=== PATIENT | male | born 1945 | race Caucasian/White ===

== ENCOUNTER 2019-08-07 13:04 | Inpatient (IN) | payer MEDICARE, MEDICAID ==
[~2019-08-07] VITALS: Ht 170.2 cm; Wt 64.4 kg
[2019-08-07] MEDS ORDERED: Solu-MEDROL 125mg Inj IVP ONE (13:15)
[2019-08-07] MEDS ORDERED: Ipratropium 0.02% Inh Soln 2.5ml UD HHN ONE (13:15)
[2019-08-07] MEDS ORDERED: ASPIR 8181 MG ORAL (13:27)
[2019-08-07] MEDS ORDERED: ATORVASTATIN CA40 MG ORAL (13:32)
[2019-08-07] MEDS ORDERED: LISINOPRIL20 MG ORAL (13:32)
[2019-08-07] MEDS ORDERED: SINGULAIR4 M3 ORAL (13:32)
[2019-08-07] MEDS ORDERED: VITAMIN D31000 UNI4 PO (13:32)
[2019-08-07] MEDS ORDERED: METOPROLOL SUCC25 MG ORAL (13:32)
[2019-08-07] MEDS ORDERED: DUONEB 0.5-3(2.53 ML HHN (13:32)
[2019-08-07] MEDS ORDERED: SYNTHROID25 MCG ORAL (13:32)
[2019-08-07] MEDS ORDERED: DIGOXIN125 MCG ORAL (13:32)
[2019-08-07] MEDS ORDERED: FUROSEMIDE40 MG ORAL (13:32)
[2019-08-07] MEDS ORDERED: SINEMET 25-1001 EAC1 ORAL (13:32)
[2019-08-07] MEDS: Albuterol ud Inhalation HHN SCH ×2 (13:45→13:46)
[2019-08-07 13:53] LABS: BASOPHILS % (AUTO) 1.9 % (0.0-2.0); EOSINOPHILS % (AUTO) 3.1 % (0.0-3.0); HEMATOCRIT 38.1 % (42.0-52.0); HEMOGLOBIN 12.2 G/DL (14.2-18.0); MEAN CORPUSCULAR VOLUME 89 FL (80-99); MONOCYTES % (AUTO) 9.2 % (1.0-10.0); NEUTROPHILS % (AUTO) 73.9 % (45.0-75.0); PLATELET COUNT 190 K/UL (150-450); RED BLOOD COUNT 4.29 M/UL (4.70-6.10); RED CELL DISTRIBUTION WIDTH 15.3 % (11.6-14.8); WHITE BLOOD COUNT 8.8 K/UL (4.8-10.8)
[2019-08-07 13:55] VITALS: BP 92/67
[2019-08-07 14:05] LABS: ANION GAP 5 mmol/L (5-15); BLOOD UREA NITROGEN 15 mg/dL (7-18); CALCIUM 8.4 MG/DL (8.5-10.1); CARBON DIOXIDE 33 MMOL/L (21-32); CHLORIDE 99 MMOL/L (98-107); CREATININE 0.9 MG/DL (0.55-1.30); INR 1.1 (0.9-1.1); POTASSIUM 3.4 MMOL/L (3.5-5.1); SODIUM 137 MMOL/L (136-145)
[2019-08-07 14:16] LABS: ALANINE AMINOTRANSFERASE 28 U/L (12-78); ALBUMIN/GLOBULIN RATIO 0.8 (1.0-2.7); ALKALINE PHOSPHATASE 57 U/L (46-116); ASPARTATE AMINO TRANSFERASE 22 U/L (15-37); BILIRUBIN,TOTAL 0.6 MG/DL (0.2-1.0); CREATINE KINASE 62 U/L (26-308)
--- NOTE | 2019-08-07 14:44 | Emergency Room Report ---
History of Present Illness General Chief Complaint: Dyspnea/Respdistress Source: EMS Present Illness HPI Patient presents with wheezing and nonproductive cough. The patient is a poor historian. According to his private physician someone noted that he was hypotensive. Status post fracture of right upper arm. History of Parkinson's. History of schizophrenia. Allergies: Coded Allergies: No Known Allergies (Unverified , 08/07/19) Patient History Limited by: medical condition Past Medical History: see triage record, old chart reviewed Social History: Denies: smoking - Former Social History Narrative [facility] facility -full code Reviewed Nursing Documentation: PMH: Agreed; PSxH: Agreed Nursing Documentation-PMH Hx Cardiac Problems: Yes - AFIB, CAD, HYPERLIPIDEMIA Hx Hypertension: Yes Hx COPD: Yes History Of Psychiatric Problem: Yes - ANXIETY, SCHIZO Review of Systems All Other Systems: limited Physical Exam Vital Signs Date Time Temp Pulse Resp B/P (MAP) Pulse Ox O2 Delivery O2 Flow Rate FiO2 08/07/19 13:08 97.5 77 20 97/57 (70) 96 Nasal Cannula 2.0 08/07/19 13:36 32 Sp02 EP Interpretation: reviewed, abnormal - Interpreted as low by me General Appearance: no apparent distress, alert, other - Confused and not responding to commands, Chronically Ill Eyes: bilateral eye normal inspection, bilateral eye PERRL, bilateral eye EOMI ENT: moist mucus membranes Neck: full range of motion, supple Respiratory: wheezing, expiration, inspiration Cardiovascular #1: regular rate, rhythm, edema - Trace lower extremities Cardiovascular #2: 2+ radial (L) Gastrointestinal: non tender, soft, decreased bowel sounds Genitourinary: no CVA tenderness Musculoskeletal: normal range of motion, no calf tenderness, tender - Passive range of motion right upper arm Neurologic: DTRs symmetric, sensory intact, motor weakness - Lower extremities but moves all 4, oriented Psychiatric: mood/affect normal, other - Unintentional verbiage and grumbling , occasionally combative Medical Decision Making Diagnostic Impression: Primary Impression: COPD exacerbation Additional Impressions: CHF (congestive heart failure) Qualified Codes: I50.9 - Heart failure, unspecified Schizophrenia Qualified Codes: F20.9 - Schizophrenia, unspecified History of Parkinson's disease ER Course Patient presents with dyspnea and wheezing. Differential includes acute myocardial infarction, exacerbation congestive heart failure, pneumonia, pulmonary embolus, congestive heart failure amongst others. Patient evaluated with EKG, chest x-ray and labs. Patient treated with Solu-Medrol and breathing treatments. EKG without injury. Chest x-ray both COPD and CHF. No lobar infiltrates. White count normal with eosinophilia.. Elevated BNP. Unable to obtain urinalysis. Improved with breathing treatments. CO2 19. Patient with elevated BNP. Lasix ordered. Discussed with Dr. Coy. Patient is less respiratory distress. Still with low oxygen on supplemental oxygen. She is CO2 not increasing. Admit telemetry. Laboratory Tests Test 08/07/19 13:20 White Blood Count 8.8 K/UL (4.8-10.8) Red Blood Count 4.29 M/UL (4.70-6.10) L Hemoglobin 12.2 G/DL (14.2-18.0) L Hematocrit 38.1 % (42.0-52.0) L Mean Corpuscular Volume 89 FL (80-99) Mean Corpuscular Hemoglobin 28.4 PG (27.0-31.0) Mean Corpuscular Hemoglobin Concent 32.0 G/DL (32.0-36.0) Red Cell Distribution Width 15.3 % (11.6-14.8) H Platelet Count 190 K/UL (150-450) Mean Platelet Volume 6.0 FL (6.5-10.1) L Neutrophils (%) (Auto) 73.9 % (45.0-75.0) Lymphocytes (%) (Auto) 12.0 % (20.0-45.0) L Monocytes (%) (Auto) 9.2 % (1.0-10.0) Eosinophils (%) (Auto) 3.1 % (0.0-3.0) H Basophils (%) (Auto) 1.9 % (0.0-2.0) Prothrombin Time 12.0 SEC (9.30-11.50) H Prothrombin Time INR 1.1 (0.9-1.1) PTT 33 SEC (23-33) Sodium Level 137 MMOL/L (136-145) Potassium Level 3.4 MMOL/L (3.5-5.1) L Chloride Level 99 MMOL/L (98-107) Carbon Dioxide Level 33 MMOL/L (21-32) H Anion Gap 5 mmol/L (5-15) Blood Urea Nitrogen 15 mg/dL (7-18) Creatinine 0.9 MG/DL (0.55-1.30) Estimate Glomerular Filtration Rate mL/min (>60) Glucose Level 122 MG/DL (74-106) H Lactic Acid Level 0.90 mmol/L (0.4-2.0) Calcium Level 8.4 MG/DL (8.5-10.1) L Total Bilirubin 0.6 MG/DL (0.2-1.0) Aspartate Amino Transferase (AST) 22 U/L (15-37) Alanine Aminotransferase (ALT) 28 U/L (12-78) Alkaline Phosphatase 57 U/L (46-116) Total Creatine Kinase 62 U/L (26-308) Troponin I 0.040 ng/mL (0.000-0.056) Pro-B-Type Natriuretic Peptide 9918 pg/mL (0-125) H Total Protein 6.7 G/DL (6.4-8.2) Albumin 3.0 G/DL (3.4-5.0) L Globulin 3.7 g/dL Albumin/Globulin Ratio 0.8 (1.0-2.7) L Microbiology Date/Time Source Procedure Growth Status 08/07/19 14:00 Nasal Nares - Final Complete 08/07/19 14:00 Nasal Nares - Final Complete EKG Diagnostic Results Rate: normal Rhythm: NSR ST Segments: no acute changes - Left bundle branch block biatrial enlargement Rhythm Strip Diag. Results EP Interpretation: yes Rhythm: NSR, other - PVC and rate 87 Chest X-Ray Diagnostic Results Chest X-Ray Diagnostic Results : Chest X-Ray Ordered: Yes # of Views/Limited/Complete: 1 View Indication: Shortness of Breath EP Interpretation: Yes Interpretation: no effusion, no pneumothorax, other - CHF and COPD Impression: Other Electronically Signed by: Electronically signed by Collins Blanco MD Last Vital Signs Date Time Temp Pulse Resp B/P (MAP) Pulse Ox O2 Delivery O2 Flow Rate FiO2 08/07/19 17:40 97.7 16 126/76 (93) 08/07/19 17:38 96 92 Nasal Cannula 08/07/19 17:06 2.0 08/07/19 15:02 28 Status: improved Disposition: ADMITTED INPATIENT Condition: Serious Referrals: Jeffrey Scott DO (PCP) Collins Blanco MD Aug 07, 2019 14:44
[2019-08-07 15:02] VITALS: BP 105/75
[2019-08-07 16:13] VITALS: BP 122/78
--- NOTE | 2019-08-07 17:12 | Pulmonology Progress Note ---
Assessment/Plan Assessment/Plan Pulmonary Consultation HPI Patient is a 74 year old man with history of Congestive Heart Failure, HTN, CAD , Atrial Fibrillation, Chronic Obstructive Pulmonary Disease, admitted complaining of wheezing, nonproductive cough and shortness of breath. The patient is a poor historian. History of previous fracture of right upper arm. Allergies: No Known Allergies Past Medical History: Congestive Heart Failure, Hypertension, Coronary Artery Disease, Atrial Fibrillation, Chronic Obstructive Pulmonary Disease, Hyperlipidemia, Hypothyroidism, Parkinsons Disease, Schizophrenia, Anxiety ROS: Negative aside from above Physical Exam Vital Signs Noted Date Time Temp Pulse Resp B/P (MAP) Pulse Ox O2 Delivery O2 Flow Rate FiO2 08/07/19 13:08 97.5 77 20 97/57 (70) 96 Nasal Cannula 2.0 08/07/19 13:36 32 General: WDWN HEENT: Moist mm, NCAT Chest: Basal crackles, expiratory wheezing Heart: HS1, HS2, RRR Abdomen: SNTND Extremities: Well perfused, mild edema SAMPLE CARRIER: Intact Impression: Primary Impression: Chronic Obstructive Pulmonary Disease exacerbation, no focal infiltrates Congestive heart failure Hypertension Coronary Artery Disease Atrial Fibrillation Hyperlipidemia Hypothyroidism Parkinsons Disease Schizophrenia Anxiety Plan Diurese PRN Solumedrol - wean as tolerated Doxycycline ST evaluation Aspiration precautions HHN O2 PRN PPX LE Dupplex - negative Monitor labs [employer] medications EKG: Rate: normal Rhythm: NSR ST Segments: no acute changes - Left bundle branch block biatrial enlargement CXR: no effusion, no pneumothorax, other - CHF and COPD Subjective ROS Limited/Unobtainable: No Allergies: Coded Allergies: No Known Allergies (Unverified , 08/07/19) Objective Last 24 Hour Vital Signs Date Time Temp Pulse Resp B/P (MAP) Pulse Ox O2 Delivery O2 Flow Rate FiO2 08/07/19 16:13 98.3 96 24 122/78 92 Nasal Cannula 08/07/19 15:02 97.5 92 24 105/75 100 Nasal Cannula 2.0 28 08/07/19 14:03 87 24 100 Nasal Cannula 2.0 28 08/07/19 13:59 100 Nasal Cannula 2.0 28 08/07/19 13:55 86 24 Nasal Cannula 22.0 28 08/07/19 13:55 97.5 90 24 92/67 93 Nasal Cannula 22.0 28 08/07/19 13:39 86 24 93 Nasal Cannula 22.0 28 08/07/19 13:36 87 22 93 Nasal Cannula 3.0 32 08/07/19 13:08 97.5 77 20 97/57 (70) 96 Nasal Cannula 2.0 Microbiology Date/Time Source Procedure Growth Status 08/07/19 14:00 Nasal Nares - Final Complete 08/07/19 14:00 Nasal Nares - Final Complete Laboratory Tests 08/07/19 13:20: White Blood Count 8.8, Red Blood Count 4.29L, Hemoglobin 12.2L, Hematocrit 38.1L , Mean Corpuscular Volume 89, Mean Corpuscular Hemoglobin 28.4, Mean Corpuscular Hemoglobin Concent 32.0, Red Cell Distribution Width 15.3H, Platelet Count 190, Mean Platelet Volume 6.0L, Neutrophils (%) (Auto) 73.9, Lymphocytes (%) (Auto) 12.0L, Monocytes (%) (Auto) 9.2, Eosinophils (%) (Auto) 3.1H, Basophils (%) (Auto) 1.9, Prothrombin Time 12.0H, Prothromb Time International Ratio 1.1, Activated Partial Thromboplast Time 33, Sodium Level 137, Potassium Level 3.4L, Chloride Level 99, Carbon Dioxide Level 33H, Anion Gap 5, Blood Urea Nitrogen 15, Creatinine 0.9, Estimat Glomerular Filtration Rate , Glucose Level 122H, Lactic Acid Level 0.90, Calcium Level 8.4L, Total Bilirubin 0.6, Aspartate Amino Transf (AST/SGOT) 22, Alanine Aminotransferase ( ALT/SGPT) 28, Alkaline Phosphatase 57, Total Creatine Kinase 62, Troponin I 0.040, Pro-B-Type Natriuretic Peptide 9918H, Total Protein 6.7, Albumin 3.0L, Globulin 3.7, Albumin/Globulin Ratio 0.8L Collins Rust MD Aug 07, 2019 17:12
[2019-08-07 17:40] VITALS: BP 126/76
[2019-08-07] MEDS ORDERED: MULTIVITAMINS1 EAC2 ORAL (18:02)
[2019-08-07] MEDS: Albuterol/Ipratropium 3ml neb HHN SCH ×2 (19:54→23:25)
[2019-08-07 20:00] VITALS: BP 114/60
[2019-08-07] MEDS: Doxycycline Monohydrate 100mg ORAL SCH (20:30)
[2019-08-07] MEDS: Atorvastatin 20mg tab ORAL SCH (20:30)
[2019-08-07] MEDS ORDERED: Solu-MEDROL 40mg Inj IVP SCH (21:00)
[2019-08-08] VITALS: BP 108/68
[2019-08-08] MEDS: Solu-MEDROL 40mg Inj IVP SCH (00:13)
[2019-08-08] MEDS: Albuterol/Ipratropium 3ml neb HHN SCH ×6 (03:37→23:57)
[2019-08-08 04:00] VITALS: BP 116/60
[2019-08-08] MEDS: Levothyroxine 25mcg tab ORAL SCH (06:35)
[2019-08-08 08:00] VITALS: BP 103/54
[2019-08-08 08:26] LABS: BASOPHILS % (AUTO) 0.3 % (0.0-2.0); HEMATOCRIT 38.2 % (42.0-52.0); HEMOGLOBIN 12.3 G/DL (14.2-18.0); LYMPHOCYTES % (AUTO) 10.2 % (20.0-45.0); MEAN CORPUSCULAR VOLUME 88 FL (80-99); MONOCYTES % (AUTO) 4.8 % (1.0-10.0); NEUTROPHILS % (AUTO) 84.7 % (45.0-75.0); PLATELET COUNT 199 K/UL (150-450); RED BLOOD COUNT 4.33 M/UL (4.70-6.10); RED CELL DISTRIBUTION WIDTH 15.5 % (11.6-14.8); WHITE BLOOD COUNT 8.2 K/UL (4.8-10.8)
[2019-08-08] MEDS: guaiFENesin ER 600mg tab ORAL SCH ×2 (08:33→17:07)
[2019-08-08] MEDS: Aspirin EC 81mg tab ORAL SCH (08:33)
[2019-08-08] MEDS: Digoxin 0.125mg tab ORAL SCH (08:33)
[2019-08-08] MEDS: Doxycycline Monohydrate 100mg ORAL SCH ×2 (08:33→21:18)
[2019-08-08] MEDS: Levodopa/Carbidopa 25/100 tab ORAL SCH ×3 (08:34→17:07)
[2019-08-08] MEDS: Metoprolol Succinate XL 25mg tab ORAL SCH (08:34)
[2019-08-08] MEDS ORDERED: Lisinopril 10mg tab ORAL SCH (09:00)
[2019-08-08 09:04] LABS: ANION GAP 3 mmol/L (5-15); BLOOD UREA NITROGEN 16 mg/dL (7-18); CARBON DIOXIDE 34 MMOL/L (21-32); CHLORIDE 101 MMOL/L (98-107); CREATININE 1.2 MG/DL (0.55-1.30); SODIUM 138 MMOL/L (136-145)
--- NOTE | 2019-08-08 11:20 | Diagnostic Imaging Report ---
Indication: Shortness of breath Technique: One view of the chest Comparison: none Findings: There is bilateral interstitial disease. The heart is borderline enlarged. There may be some blunting of the right costophrenic sulcus. No focal airspace consolidation Impression: Borderline cardiomegaly Acuity indeterminate bilateral interstitial disease Possible small right pleural effusion
[2019-08-08 11:26] VITALS: BP 102/66
[2019-08-08] MEDS ORDERED: LORazepam 1mg tab ORAL PRN (15:00)
[2019-08-08 15:22] VITALS: BP 98/57
--- NOTE | 2019-08-08 16:45 | Consultation ---
DATE OF CONSULTATION: 08/08/2019 HISTORY OF PRESENT ILLNESS: This is a 74-year-old male with history of schizophrenia, Parkinson disease who has been admitted to the hospital due to nonproductive cough and wheezing. The patient has been combative in the morning, confused, disoriented, unable to answer the questions appropriately, delusional, poor cognition, poor historian. PAST PSYCHIATRIC HISTORY: Schizophrenia versus schizoaffective disorder, several psychiatric hospitalization, poor historian. PAST MEDICAL HISTORY: COPD, CHF, Parkinson disease. ALLERGIES: No known drug allergies. SUBSTANCE ABUSE HISTORY: He denies any illicit drug use or alcohol. MENTAL STATUS EXAMINATION: The patient is alert, oriented times self and place. Mood is agitated. Affect is flat. Thought process is concrete. Thought content, no suicidal or homicidal ideation. Delusional. Cognition is impaired. Insight and judgment is impaired. ASSESSMENT: [place] I Schizophrenia. [place] II Deferred. [place] III As above. [place] IV Low [place] V 20 PLAN: 1. The patient will be started on risperidone. 2. Depakote. 3. Provide the patient with reality orientation and supportive therapy. Tico Lebron M.D. DR: Arleen JOB#: [id number] CC:
--- NOTE | 2019-08-08 18:53 | Diagnostic Imaging Report ---
APPROVED REPORT CPT Code: 39016 Present Symptoms Lower Extremity Edema: BILATERAL: Imaging reveals a patent deep venous system bilaterally. There is no evidence of thrombus within the femoral, popliteal or tibial segments. The greater saphenous veins are also within normal limits. Doppler indicates normal spontaneous flow within these segments.
--- NOTE | 2019-08-08 19:27 | Cardiology Progress Note ---
Assessment/Plan Assessment/Plan The patient is seen and examined, full consult note will be dictated. Objective Last 24 Hour Vital Signs Date Time Temp Pulse Resp B/P (MAP) Pulse Ox O2 Delivery O2 Flow Rate FiO2 08/08/19 16:02 89 20 98 Nasal Cannula 2.0 28 86 18 96 08/08/19 16:01 96 Nasal Cannula 2.0 28 08/08/19 15:22 97.3 84 20 98/57 (71) 98 08/08/19 15:09 84 08/08/19 11:40 86 08/08/19 11:26 98.4 81 20 102/66 (78) 98 08/08/19 11:12 88 20 98 Nasal Cannula 2.0 28 85 18 95 08/08/19 09:00 93 08/08/19 08:34 92 103/54 08/08/19 08:34 103/54 08/08/19 08:33 92 08/08/19 08:00 97.9 92 20 103/54 (70) 92 08/08/19 07:28 Nasal Cannula 2.0 08/08/19 07:25 94 20 97 Nasal Cannula 2.0 28 92 18 96 08/08/19 07:24 96 Nasal Cannula 2.0 28 08/08/19 04:00 99.1 87 22 116/60 (78) 96 08/08/19 04:00 92 08/08/19 03:37 91 20 95 Nasal Cannula 2.0 28 88 20 92 08/08/19 00:00 98.3 93 20 108/68 (81) 93 08/08/19 00:00 90 08/07/19 23:25 94 Nasal Cannula 2.0 28 08/07/19 23:25 89 20 94 Nasal Cannula 2.0 28 90 20 93 08/07/19 21:00 Nasal Cannula 2.0 08/07/19 20:00 84 08/07/19 20:00 98.4 94 20 114/60 (78) 95 Intake and Output 08/07/19 08/08/19 18:59 06:59 Intake Total 2000 ml Output Total 325 ml 600 ml Balance 1675 ml -600 ml IV Total 2000 ml Output Urine Total 325 ml 600 ml # Voids 1 3 # Bowel Movements 1 Laboratory Tests Test 08/08/19 06:09 White Blood Count 8.2 K/UL (4.8-10.8) Red Blood Count 4.33 M/UL (4.70-6.10) L Hemoglobin 12.3 G/DL (14.2-18.0) L Hematocrit 38.2 % (42.0-52.0) L Mean Corpuscular Volume 88 FL (80-99) Mean Corpuscular Hemoglobin 28.5 PG (27.0-31.0) Mean Corpuscular Hemoglobin Concent 32.3 G/DL (32.0-36.0) Red Cell Distribution Width 15.5 % (11.6-14.8) H Platelet Count 199 K/UL (150-450) Mean Platelet Volume 6.4 FL (6.5-10.1) L Neutrophils (%) (Auto) 84.7 % (45.0-75.0) H Lymphocytes (%) (Auto) 10.2 % (20.0-45.0) L Monocytes (%) (Auto) 4.8 % (1.0-10.0) Eosinophils (%) (Auto) 0.0 % (0.0-3.0) Basophils (%) (Auto) 0.3 % (0.0-2.0) Sodium Level 138 MMOL/L (136-145) Potassium Level 5.0 MMOL/L (3.5-5.1) Chloride Level 101 MMOL/L (98-107) Carbon Dioxide Level 34 MMOL/L (21-32) H Anion Gap 3 mmol/L (5-15) L Blood Urea Nitrogen 16 mg/dL (7-18) Creatinine 1.2 MG/DL (0.55-1.30) Estimat Glomerular Filtration Rate mL/min (>60) Glucose Level 98 MG/DL (74-106) Calcium Level 9.0 MG/DL (8.5-10.1) Digoxin Level 0.5 NG/ML (0.5-2.0) Microbiology Date/Time Source Procedure Growth Status 08/07/19 14:00 Nasal Nares - Final Complete 08/07/19 14:00 Nasal Nares - Final Complete 08/07/19 14:00 Rectum Received Arben Ye MD Aug 08, 2019 19:27
[2019-08-08 20:00] VITALS: BP 103/70
--- NOTE | 2019-08-08 21:15 | Pulmonology Progress Note ---
Assessment/Plan Assessment/Plan Pulmonary Progress Note HPI Patient is a 74 year old man with history of Congestive Heart Failure, HTN, CAD , Atrial Fibrillation, Chronic Obstructive Pulmonary Disease, admitted complaining of wheezing, nonproductive cough and shortness of breath. The patient is a poor historian. History of previous fracture of right upper arm. Allergies: No Known Allergies Past Medical History: Congestive Heart Failure, Hypertension, Coronary Artery Disease, Atrial Fibrillation, Chronic Obstructive Pulmonary Disease, Hyperlipidemia, Schizophrenia, Anxiety, Hypothyroidism, Parkinsons ROS: Negative aside from above Physical Exam Vital Signs Noted General: WDWN HEENT: Moist mm, NCAT Chest: CTAB Heart: HS1, HS2, RRR Abdomen: SNTND Extremities: Well perfused, mild edema HOT ROLL INSPECTOR: Intact Impression: Primary Impression: Chronic Obstructive Pulmonary Disease exacerbation, no focal infiltrates Congestive heart failure Hypertension Coronary Artery Disease Atrial Fibrillation Hyperlipidemia Hypothyroidism Parkinsons Disease Schizophrenia Anxiety Plan Diurese PRN Solumedrol - wean as tolerated Doxycycline Aspiration precautions ST evaluation HHN O2 PRN PPX-SCD Monitor labs COMPLIANCE DIRECTOR medications EKG: Rate: normal Rhythm: NSR ST Segments: no acute changes - Left bundle branch block biatrial enlargement CXR: no effusion, no pneumothorax, other - CHF and COPD Subjective ROS Limited/Unobtainable: No Allergies: Coded Allergies: No Known Allergies (Unverified , 08/07/19) Objective Last 24 Hour Vital Signs Date Time Temp Pulse Resp B/P (MAP) Pulse Ox O2 Delivery O2 Flow Rate FiO2 08/08/19 20:00 96.6 85 21 103/70 (81) 98 08/08/19 19:37 94 Nasal Cannula 2.0 28 08/08/19 19:37 88 16 96 Nasal Cannula 2.0 28 89 18 94 08/08/19 16:02 89 20 98 Nasal Cannula 2.0 28 86 18 96 08/08/19 16:01 96 Nasal Cannula 2.0 28 08/08/19 15:22 97.3 84 20 98/57 (71) 98 08/08/19 15:09 84 08/08/19 11:40 86 08/08/19 11:26 98.4 81 20 102/66 (78) 98 08/08/19 11:12 88 20 98 Nasal Cannula 2.0 28 85 18 95 08/08/19 09:00 93 08/08/19 08:34 92 103/54 08/08/19 08:34 103/54 08/08/19 08:33 92 08/08/19 08:00 97.9 92 20 103/54 (70) 92 08/08/19 07:28 Nasal Cannula 2.0 08/08/19 07:25 94 20 97 Nasal Cannula 2.0 28 92 18 96 08/08/19 07:24 96 Nasal Cannula 2.0 28 08/08/19 04:00 99.1 87 22 116/60 (78) 96 08/08/19 04:00 92 08/08/19 03:37 91 20 95 Nasal Cannula 2.0 28 88 20 92 08/08/19 00:00 98.3 93 20 108/68 (81) 93 08/08/19 00:00 90 08/07/19 23:25 94 Nasal Cannula 2.0 28 08/07/19 23:25 89 20 94 Nasal Cannula 2.0 28 90 20 93 Intake and Output 08/07/19 08/08/19 19:00 07:00 Intake Total 2000 ml Output Total 325 ml 600 ml Balance 1675 ml -600 ml IV Total 2000 ml Output Urine Total 325 ml 600 ml # Voids 1 3 # Bowel Movements 1 Microbiology Date/Time Source Procedure Growth Status 08/07/19 14:00 Nasal Nares - Final Complete 08/07/19 14:00 Nasal Nares - Final Complete 08/07/19 14:00 Rectum Received Laboratory Tests 08/08/19 06:09: White Blood Count 8.2, Red Blood Count 4.33L, Hemoglobin 12.3L, Hematocrit 38.2L , Mean Corpuscular Volume 88, Mean Corpuscular Hemoglobin 28.5, Mean Corpuscular Hemoglobin Concent 32.3, Red Cell Distribution Width 15.5H, Platelet Count 199, Mean Platelet Volume 6.4L, Neutrophils (%) (Auto) 84.7H, Lymphocytes (%) (Auto) 10.2L, Monocytes (%) (Auto) 4.8, Eosinophils (%) (Auto) 0.0, Basophils (%) (Auto) 0.3, Sodium Level 138, Potassium Level 5.0, Chloride Level 101, Carbon Dioxide Level 34H, Anion Gap 3L, Blood Urea Nitrogen 16, Creatinine 1.2, Estimat Glomerular Filtration Rate , Glucose Level 98, Calcium Level 9.0, Digoxin Level 0.5 08/08/19 20:00: Troponin I 0.040 Current Medications Medications (Trade) Dose Ordered Sig/Brandy Route PRN Reason Start Time Stop Time Status Last Admin Dose Admin Albuterol/ Ipratropium (Albuterol/ Ipratropium) 3 ml Q4HRT HHN 08/07/19 19:00 08/12/19 18:59 08/08/19 19:37 Aspirin (Ecotrin) 81 mg DAILY ORAL 08/08/19 09:00 09/07/19 08:59 08/08/19 08:33 Atorvastatin Calcium (Lipitor) 40 mg BEDTIME ORAL 08/07/19 21:00 09/06/19 20:59 08/07/19 20:30 Carbidopa/Levodopa (Sinemet 25/100) 1 tab THREE TIMES A DAY ORAL 08/08/19 09:00 09/07/19 08:59 08/08/19 17:07 Digoxin (Lanoxin) 0.125 mg DAILY ORAL 08/08/19 09:00 09/07/19 08:59 08/08/19 08:33 Divalproex Sodium (Depakote ER) 750 mg BEDTIME ORAL 08/08/19 21:00 09/07/19 20:59 Doxycycline Monohydrate (Doxycycline Monohydrate) 100 mg EVERY 12 HOURS ORAL 08/07/19 21:00 08/14/19 20:59 08/08/19 08:33 Guaifenesin (Mucinex ER) 600 mg TWICE A DAY ORAL 08/08/19 09:00 09/07/19 08:59 08/08/19 17:07 Levothyroxine Sodium (Synthroid) 25 mcg ACBREAKFAST ORAL 08/08/19 06:30 09/07/19 06:29 08/08/19 06:35 Lorazepam (Ativan) 1 mg Q6H PRN ORAL For Anxiety 08/08/19 15:00 08/15/19 14:59 Methylprednisolone Sodium Succinate (Solu-MEDROL) 40 mg Q24H IVP 08/08/19 01:00 09/07/19 00:59 08/08/19 00:13 Metoprolol Succinate (Toprol XL) 25 mg DAILY ORAL 08/08/19 09:00 09/07/19 08:59 Multivitamins (Multivitamins) 1 tab DAILY ORAL 08/08/19 09:00 09/07/19 08:59 08/08/19 08:33 Risperidone (RisperDAL) 2 mg BEDTIME ORAL 08/08/19 21:00 09/07/19 20:59 Collins Rust MD Aug 08, 2019 21:15
[2019-08-08] MEDS: Depakote ER 250mg tab ORAL SCH (21:20)
[2019-08-08] MEDS: Atorvastatin 20mg tab ORAL SCH (21:20)
--- NOTE | 2019-08-08 21:45 | History and Physical Report ---
DATE OF ADMISSION: 08/07/2019 HISTORY OF PRESENT ILLNESS: The patient was admitted for COPD exacerbation, possible CHF, low potassium, hypertensive at the senior living, wheezing at the senior living. The patient is relatively a poor historian, but does complain of shortness of breath and wheezing and some cough for the past couple of days. Denies orthopnea. Denies nausea, vomiting, or diarrhea. Denies rectal bleeding. PAST MEDICAL HISTORY: Significant for hyperlipidemia, Parkinson disease, arrhythmia, hypothyroidism, COPD, hypertension, also history of possible CHF. PAST MEDICAL HISTORY: No known surgeries. ALLERGIES: No known allergies. MEDICATIONS: Sinemet, Lipitor, vitamin D, digoxin, Lasix, Levoxyl, lisinopril, metoprolol, montelukast, and multivitamin. SOCIAL HISTORY: History of smoking. History of alcohol abuse. No history of drug abuse. Comes from a senior living. FAMILY HISTORY: Noncontributory. REVIEW OF SYSTEMS: HEENT: Denies headaches. RESPIRATORY: Reports shortness of breath and mild cough. The patient does have some wheezing and coughing as well. CARDIOVASCULAR: Denies chest pain. GASTROINTESTINAL: Denies nausea, vomiting, or diarrhea. EXTREMITIES: Denies pain. CENTRAL NERVOUS SYSTEM: Denies any change in speech pattern. PHYSICAL EXAMINATION: VITAL SIGNS: Temperature 97.3, pulse is 84, and blood pressure 98/57. HEENT: PERRLA. NECK: Supple. No lymphadenopathy. CHEST: Bibasilar wheezing. CARDIOVASCULAR: Regular rate and rhythm. No murmurs or extra sounds. GASTROINTESTINAL: Soft, nontender, and nondistended. No organomegaly. EXTREMITIES: No edema. Moves all four extremities. NEUROLOGIC: Sensory is intact to light touch. Reflexes equal on both sides. LABORATORY DATA: WBC of 8.8, hemoglobin 12.2, platelets of 190,000. Sodium 137, potassium 3.4, BUN of 15, creatinine 0.9, and glucose of 122. Troponin 0.04. ASSESSMENT AND PLAN: 1. Respiratory insufficiency. 2. Wheezing. 3. COPD exacerbation. 4. Hypokalemia. 5. Rule out CHF exacerbation. 6. Elective imbalance. 7. Hypotension. 8. Wheezing. I have asked Dr. Ye, Dr. Dow, Dr. Rust to see the patient to help with the management of the above-mentioned diagnosis, symptoms, and abnormalities. Duane Coy M.D. DR: CHRISTOPHER JOB#: [id number] CC:
--- NOTE | 2019-08-08 23:15 | Consultation ---
DATE OF CONSULTATION: 08/08/2019 CARDIOLOGY CONSULTATION CONSULTING PHYSICIAN: Arben Ye M.D. REFERRING PHYSICIAN: Duane Coy M.D. REASON FOR CONSULTATION: Management of shortness of breath with the possibility of congestive heart failure. HISTORY OF PRESENT ILLNESS: The patient is a very unfortunate 74-year-old gentleman, the resident of [facility], who presents to the hospital with wheezing and nonproductive cough. The patient is basically a poor historian and is shaking and nodding his head to my questions. The patient apparently was hypotensive according to the primary care physician in the nursing facility and was sent over to this facility for evaluation of the above. At the time of the arrival to the hospital, blood pressure was 97/57 mmHg and heart rate was 77. A 12-lead electrocardiogram was significant for sinus rhythm at a rate of 82 and left bundle-branch block. There was 1 single ventricular premature depolarizations seen. Cardiology consultation was made at the request of Dr. Coy for evaluation and management of dyspnea and left bundle-branch block as well as hypotension. The patient was admitted to telemetry for further evaluation and management of nonproductive cough, wheezing, and shortness of breath. PAST MEDICAL HISTORY: 1. History of paroxysmal atrial fibrillation. 2. History of CAD. 3. Hyperlipidemia. 4. Hypertension. 5. Chronic obstructive pulmonary disease. 6. Anxiety. 7. Schizophrenia. 8. Parkinson disease. PAST SURGICAL HISTORY: None. MEDICATIONS: The list of medication in the nursing facility, aspirin 81 mg p.o. daily, atorvastatin 40 mg p.o. at bedtime, Sinemet 25/100 one tablet 3 times a day, vitamin D3 1000 units p.o. daily, digoxin 125 mcg p.o. daily, Lasix 40 mg p.o. daily, DuoNeb 3 mL HHN q.6 hours, levothyroxine 25 mcg p.o. daily, lisinopril 10 mg p.o. daily, metoprolol 25 mg p.o. daily, Singulair 4 mg p.o. daily, and multivitamin tablet daily. SOCIAL HISTORY: Former smoker. Denies any alcohol or illicit drug use at this time. The patient is a resident of a [facility] facility. FAMILY HISTORY: No premature coronary artery disease in the first-degree relatives. REVIEW OF SYSTEMS: HEENT: Denies any headache, diplopia, or blurred vision. CONSTITUTIONAL: Denies any fever, chills, night sweats, or weight loss. CARDIOVASCULAR: Denies any chest pain. Denies any dyspnea on exertion, PND, orthopnea, or leg swelling. PULMONARY: Nonproductive cough and wheezing as well as shortness of breath is reported. GASTROINTESTINAL: Denies any nausea, vomiting, diarrhea, constipation, abdominal pain, or GI bleed. GENITOURINARY: Denies any hematuria, dysuria, or incontinence. NEUROLOGY: Denies any motor dysfunction, sensory deficit, or altered speech. PHYSICAL EXAMINATION: VITAL SIGNS: Blood pressure was 97/57, pulse of 77, respirations 20, temperature 97.5 degrees Fahrenheit, and O2 saturation 96% on room air. GENERAL: The patient is a very unfortunate 74-year-old gentleman, who is awake, nodding and shaking to my questions, appears to be coherent. HEENT: Atraumatic and normocephalic. Anicteric. Pupils are equal, round, and reactive to light and accommodation. Extraocular muscles intact. NECK: JVP is less than 5 cm. No carotid bruit. Carotid upstrokes 2+ bilaterally. CARDIOVASCULAR: Normal S1, S2. Regular rate and rhythm. A 2/6 mid systolic murmur at the left sternal border. PMI is at the fourth intercostal space in the midclavicular line. LUNGS: Diminished breath sounds in both lungs with coarse respiratory sounds and scattered wheezing. ABDOMEN: Soft, nontender, and nondistended. No hepatosplenomegaly. Positive bowel sounds. EXTREMITIES: No evidence of edema, clubbing, or cyanosis. LABORATORY FINDINGS: WBC was 8.8, hemoglobin 12.2, hematocrit of 38.1, and platelet count is 190,000. Sodium was 137, potassium 3.4, chloride is 99, bicarbonate 33, BUN of 15, creatinine 0.9, and glucose 122. Calcium is 8.4. Troponin I was 0.04. ProBNP 9918. INR is 1.1. Toxicology, digoxin 0.5. Chest x-ray showed borderline cardiomegaly, bilateral interstitial disease, and possible small right pleural effusion. ASSESSMENT AND PLAN: The patient is a very unfortunate 74-year-old gentleman seen in Cardiology consultation. 1. Dyspnea on exertion most likely acute exacerbation of chronic obstructive pulmonary disease, clinically does not appear to be in heart failure although brain natriuretic peptide is elevated. We would like to obtain 2D echocardiography for assessment of LV systolic and diastolic function. Further therapeutic and diagnostic decision will be based on the results of the above tests. 2. History of paroxysmal atrial fibrillation, currently in sinus rhythm. 3. Left bundle-branch block. We will continue to observe the patient. Currently stable. 4. History of hypertension. At the time of arrival to this hospital, the patient was hypotensive. We would like to place a hold on all the blood pressure medication including Lasix as well as lisinopril. We will continue metoprolol. 5. History of coronary artery disease, questionable. No details. A 12-lead electrocardiogram with left bundle branch block does not allow us to assess ST-segment changes. 6. First troponin I level is within normal limits. 7. History of hyperlipidemia. We will have a fasting lipid panel in a.m. I would like to thank, Dr. Coy, for the courtesy of this consultation. Arben Ye M.D. DR: MARTIN JOB#: [id number] CC:
[2019-08-09 00:53] VITALS: BP 118/57
[2019-08-09] MEDS: Solu-MEDROL 40mg Inj IVP SCH (00:59)
[2019-08-09] MEDS: Albuterol/Ipratropium 3ml neb HHN SCH ×6 (03:27→23:07)
[2019-08-09] MEDS: Levothyroxine 25mcg tab ORAL SCH (06:49)
[2019-08-09 07:17] LABS: HEMATOCRIT 36.6 % (42.0-52.0); HEMOGLOBIN 11.9 G/DL (14.2-18.0); MEAN CORPUSCULAR VOLUME 88 FL (80-99); PLATELET COUNT 188 K/UL (150-450); RED BLOOD COUNT 4.17 M/UL (4.70-6.10); RED CELL DISTRIBUTION WIDTH 15.4 % (11.6-14.8); WHITE BLOOD COUNT 8.1 K/UL (4.8-10.8)
[2019-08-09 07:47] LABS: ANION GAP 9 mmol/L (5-15); BLOOD UREA NITROGEN 22 mg/dL (7-18); CALCIUM 8.5 MG/DL (8.5-10.1); CARBON DIOXIDE 31 MMOL/L (21-32); CHLORIDE 101 MMOL/L (98-107); CHOLESTEROL 82 MG/DL (< 200); CREATININE 1.1 MG/DL (0.55-1.30); HDL CHOLESTEROL 51 MG/DL (40-60); POTASSIUM 4.5 MMOL/L (3.5-5.1); SODIUM 141 MMOL/L (136-145); TRIGLYCERIDES 28 MG/DL (30-150)
[2019-08-09 08:00] VITALS: BP 134/85
[2019-08-09] MEDS: Doxycycline Monohydrate 100mg ORAL SCH ×2 (09:34→21:46)
[2019-08-09] MEDS: Aspirin EC 81mg tab ORAL SCH (09:34)
[2019-08-09] MEDS: Metoprolol Succinate XL 25mg tab ORAL SCH (09:35)
[2019-08-09] MEDS: Digoxin 0.125mg tab ORAL SCH (09:35)
[2019-08-09] MEDS: Levodopa/Carbidopa 25/100 tab ORAL SCH ×3 (09:35→17:50)
[2019-08-09] MEDS: guaiFENesin ER 600mg tab ORAL SCH ×2 (09:35→17:50)
[2019-08-09 12:00] VITALS: BP 105/67
--- NOTE | 2019-08-09 12:30 | Cardiology Report ---
APPROVED REPORT EXAM: Two-dimensional and M-mode echocardiogram with Doppler and color Doppler. INDICATION Congestive Heart Failure M-Mode DIMENSIONS IVSd1.2 (0.7-1.1cm)Left Atrium (MM)4.5 (1.6-4.0cm) LVDd5.7 (3.5-5.6cm)Aortic Root2.6 (2.0-3.7cm) PWd1.2 (0.7-1.1cm)Aortic Cusp Exc.1.8 (1.5-2.0cm) LVDs5.0 (2.5-4.0cm) PWs1.6 cm Mild LV dilatation. Global LV hypokinesis. Anteroseptal dyskinesis. Distal posterior, distal inferoseptal, anterior and apical akinesis.Best motion is noted in the proximal posterior and lateral brown Left ventricular ejection fraction estimated to be 20-25 %. Increased E point-interventricular septal separation c/w left ventricular dysfunction. No evidence of pericardial effusion. Left and right atrial chambers are within normal limits. Mild right ventricular dilatation. Focal aortic valve sclerosis with adequate cusp excursion. Thickened mitral valve leaflets with normal excursion. Mitral annulus and aortic root calcification. Pulmonic valve not well visualized. Normal tricuspid valve structure. IVC at normal size without physiologic collapse. A color flow and spectral Doppler study was performed and revealed: No evidence of aortic regurgitation. Moderate mitral regurgitation. Mitral inflow velocities indicates possible pseudo normalization pattern implying moderately elevated left atrial pressure (Grade II ). Moderate tricuspid regurgitation. Tricuspid systolic velocities suggests peak right ventricular systolic pressure of 58 mmHg, consistent with moderate to severe pulmonary hypertension.
[2019-08-09 16:00] VITALS: BP 112/65
[2019-08-09] MEDS ORDERED: ASPIRIN EC81 MG ORAL (17:57)
[2019-08-09] MEDS ORDERED: MULTIVITAMINS1 EAC8 ORAL (18:03)
[2019-08-09] MEDS ORDERED: VITAMIN B-1100 MG ORAL (18:04)
[2019-08-09] MEDS ORDERED: PULMICORT0.5 MG/2 M IH (18:05)
[2019-08-09] MEDS ORDERED: MUCINEX600 MG PO (18:06)
[2019-08-09] MEDS ORDERED: MONTELUKAST SOD10 MG ORAL (18:09)
[2019-08-09] MEDS ORDERED: ALBUTEROL2.5 MG/3 M INH (18:14)
[2019-08-09] MEDS ORDERED: ACETAMINOPHEN325 M1 ORAL (18:15)
[2019-08-09] MEDS ORDERED: DOCUSATE SODIU100 MG ORAL (18:16)
[2019-08-09] MEDS ORDERED: SENNA8.6 M2 PO (18:17)
[2019-08-09] MEDS ORDERED: MILK OF MA400 MG/51 ORAL (18:18)
[2019-08-09] MEDS ORDERED: FLEET ENEMA133 ML RECTAL (18:19)
[2019-08-09] MEDS ORDERED: DULCOLAX10 MG RC (18:21)
[2019-08-09] MEDS ORDERED: RESTORIL15 MG ORAL (18:22)
[2019-08-09] MEDS ORDERED: SEROQUEL100 MG ORAL (18:23)
[2019-08-09] MEDS ORDERED: ATIVAN1 MG ORAL (18:24)
[2019-08-09] MEDS ORDERED: RISPERDAL2 MG ORAL (18:24)
--- NOTE | 2019-08-09 18:59 | Pulmonology Progress Note ---
Assessment/Plan Assessment/Plan Pulmonary Consultation HPI Patient is a 74 year old man with history of Congestive Heart Failure, HTN, CAD , Atrial Fibrillation, Chronic Obstructive Pulmonary Disease, admitted complaining of wheezing, nonproductive cough and shortness of breath. The patient is a poor historian. History of previous fracture of right upper arm. Allergies: No Known Allergies Past Medical History: Congestive Heart Failure, Hypertension, Coronary Artery Disease, Atrial Fibrillation, Chronic Obstructive Pulmonary Disease, Hyperlipidemia, Hypothyroidism, Parkinsons Disease, Schizophrenia, Anxiety ROS: Negative aside from above Physical Exam Vital Signs Noted General: WDWN HEENT: Moist mm, NCAT Chest: CTAB Heart: HS1, HS2, RRR Abdomen: SNTND Extremities: Well perfused, no edema CL[employer] BALE HEADER: Intact Impression: Primary Impression: Chronic Obstructive Pulmonary Disease exacerbation, no focal infiltrates Congestive heart failure with reduced EF, Moderate Mitral regurgitation, mod- severe Pulmonary Hypertension Hypertension Coronary Artery Disease Atrial Fibrillation - currently SR Hyperlipidemia Hypothyroidism Parkinsons Disease Schizophrenia Anxiety Plan Diurese PRN per Cardiology Solumedrol - wean as tolerated Doxycycline ST evaluation Aspiration precautions HHN O2 PRN PPX LE Dupplex - negative Monitor 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 Anteroseptal dyskinesis. Distal posterior , distal inferoseptal, anterior and apical akinesis.Best motion is noted in the proximal posterior and lateral brown Left ventricular ejection fraction estimated to be 20-25 %. Increased E point-interventricular septal separation c/w left ventricular dysfunction. No evidence of pericardial effusion. Left and right atrial chambers are within normal limits. Mild right ventricular dilatation. Focal aortic valve sclerosis with adequate cusp excursion. Thickened mitral valve leaflets with normal excursion. Mitral annulus and aortic root calcification. Pulmonic valve not well visualized. Normal tricuspid valve structure. IVC at normal size without physiologic collapse. A color flow and spectral Doppler study was performed and revealed: No evidence of aortic regurgitation. Moderate mitral regurgitation. Mitral inflow velocities indicates possible pseudo normalization pattern implying moderately elevated left atrial pressure (Grade II ). Moderate tricuspid regurgitation. Tricuspid systolic velocities suggests peak right ventricular systolic pressure of 58 mmHg, consistent with moderate to severe pulmonary hypertension. Subjective ROS Limited/Unobtainable: No Allergies: Coded Allergies: No Known Allergies (Unverified , 08/07/19) Objective Last 24 Hour Vital Signs Date Time Temp Pulse Resp B/P (MAP) Pulse Ox O2 Delivery O2 Flow Rate FiO2 08/09/19 16:20 90 08/09/19 16:16 92 16 99 Room Air 21 89 16 90 08/09/19 16:00 97.3 93 22 112/65 (81) 94 08/09/19 12:00 97.6 87 20 105/67 (80) 98 08/09/19 11:50 86 08/09/19 11:11 92 16 96 Nasal Cannula 2.0 28 90 16 91 08/09/19 09:35 104 134/85 08/09/19 09:35 104 08/09/19 08:39 Nasal Cannula 2.0 08/09/19 08:00 97.2 104 24 134/85 (101) 93 08/09/19 07:46 97 08/09/19 07:06 97 Nasal Cannula 2.0 28 08/09/19 07:06 92 16 96 Nasal Cannula 2.0 28 95 16 97 08/09/19 04:00 97 08/09/19 03:28 94 16 99 Nasal Cannula 2.0 28 96 16 96 08/09/19 00:53 97.5 99 21 118/57 (77) 96 08/09/19 00:00 91 08/08/19 23:59 92 16 99 Nasal Cannula 2.0 28 87 16 98 08/08/19 21:00 Nasal Cannula 2.0 08/08/19 20:00 92 08/08/19 20:00 96.6 85 21 103/70 (81) 98 08/08/19 19:37 94 Nasal Cannula 2.0 28 08/08/19 19:37 88 16 96 Nasal Cannula 2.0 28 89 18 94 Intake and Output 08/08/19 08/09/19 18:59 06:59 Intake Total 1200 ml Output Total 700 ml Balance 1200 ml -700 ml Intake Oral 1200 ml Output Urine Total 700 ml # Voids 3 # Bowel Movements 1 1 Microbiology Date/Time Source Procedure Growth Status 08/07/19 13:35 Blood Blood Culture - Preliminary NO GROWTH AFTER 24 HOURS Resulted 08/07/19 13:20 Blood Blood Culture - Preliminary NO GROWTH AFTER 24 HOURS Resulted 08/07/19 20:40 Sputum Expectorated Gram Stain - Final Resulted 08/07/19 20:40 Sputum Expectorated Sputum Culture - Preliminary NORMAL UPPER RESPIRATORY KRISTINA PRESENT Resulted 08/07/19 14:00 Nasal Nares - Final Complete 08/07/19 14:00 Nasal Nares - Final Complete 08/07/19 14:00 Rectum Received Laboratory Tests 08/08/19 20:00: Troponin I 0.040 08/09/19 06:30: White Blood Count 8.1, Red Blood Count 4.17L, Hemoglobin 11.9L, Hematocrit 36.6L , Mean Corpuscular Volume 88, Mean Corpuscular Hemoglobin 28.6, Mean Corpuscular Hemoglobin Concent 32.6, Red Cell Distribution Width 15.4H, Platelet Count 188, Mean Platelet Volume 5.7L, Neutrophils (%) (Auto) , Lymphocytes (%) (Auto) , Monocytes (%) (Auto) , Eosinophils (%) (Auto) , Basophils (%) (Auto) , Differential Total Cells Counted 100, Neutrophils % ( Manual) 94H, Lymphocytes % (Manual) 4L, Monocytes % (Manual) 2, Eosinophils % ( Manual) 0, Basophils % (Manual) 0, Band Neutrophils 0, Platelet Estimate Adequate, Platelet Morphology Normal, Anisocytosis 1+, Sodium Level 141, Potassium Level 4.5, Chloride Level 101, Carbon Dioxide Level 31, Anion Gap 9, Blood Urea Nitrogen 22H, Creatinine 1.1, Estimat Glomerular Filtration Rate , Glucose Level 138H, Calcium Level 8.5, Triglycerides Level 28L, Cholesterol Level 82, LDL Cholesterol 24, HDL Cholesterol 51, Cholesterol/HDL Ratio 1.6L Current Medications Medications (Trade) Dose Ordered Sig/Brandy Route PRN Reason Start Time Stop Time Status Last Admin Dose Admin Albuterol/ Ipratropium (Albuterol/ Ipratropium) 3 ml Q4HRT HHN 08/07/19 19:00 08/12/19 18:59 08/09/19 16:16 Aspirin (Ecotrin) 81 mg DAILY ORAL 08/08/19 09:00 09/07/19 08:59 08/09/19 09:34 Atorvastatin Calcium (Lipitor) 40 mg BEDTIME ORAL 08/07/19 21:00 09/06/19 20:59 08/08/19 21:20 Carbidopa/Levodopa (Sinemet 25/100) 1 tab THREE TIMES A DAY ORAL 08/08/19 09:00 12/18/19 08:59 08/09/19 17:50 Digoxin (Lanoxin) 0.125 mg DAILY ORAL 08/08/19 09:00 09/07/19 08:59 08/09/19 09:35 Divalproex Sodium (Depakote ER) 750 mg BEDTIME ORAL 08/08/19 21:00 09/07/19 20:59 08/08/19 21:20 Doxycycline Monohydrate (Doxycycline Monohydrate) 100 mg EVERY 12 HOURS ORAL 08/07/19 21:00 08/14/19 20:59 08/09/19 09:34 Guaifenesin (Mucinex ER) 600 mg TWICE A DAY ORAL 08/08/19 09:00 09/07/19 08:59 08/09/19 17:50 Levothyroxine Sodium (Synthroid) 25 mcg ACBREAKFAST ORAL 08/08/19 06:30 09/07/19 06:29 08/09/19 06:49 Lorazepam (Ativan) 1 mg Q6H PRN ORAL For Anxiety 08/08/19 15:00 08/15/19 14:59 08/08/19 23:01 Methylprednisolone Sodium Succinate (Solu-MEDROL) 40 mg Q24H IVP 08/08/19 01:00 09/07/19 00:59 08/09/19 00:59 Metoprolol Succinate (Toprol XL) 25 mg DAILY ORAL 08/08/19 09:00 09/07/19 08:59 08/09/19 09:35 Multivitamins (Multivitamins) 1 tab DAILY ORAL 08/08/19 09:00 09/07/19 08:59 08/09/19 09:35 Risperidone (RisperDAL) 2 mg BEDTIME ORAL 08/08/19 21:00 09/07/19 20:59 08/08/19 21:19 Collins Rust MD Aug 09, 2019 18:59
--- NOTE | 2019-08-09 19:35 | General Progress Note ---
Assessment/Plan Problem List: (1) Schizophrenia ICD Codes: F20.9 - Schizophrenia, unspecified SNOMED: 94775998 Qualifiers: Qualified Codes: F20.9 - Schizophrenia, unspecified (2) History of Parkinson's disease ICD Codes: Z86.69 - Personal history of other diseases of the nervous system and sense organs SNOMED: 413443730 (3) CHF (congestive heart failure) ICD Codes: I50.9 - Heart failure, unspecified SNOMED: 10626778 Qualifiers: Qualified Codes: I50.9 - Heart failure, unspecified (4) COPD exacerbation ICD Codes: J44.1 - Chronic obstructive pulmonary disease with (acute) exacerbation SNOMED: 289454804 Status: progressing Assessment/Plan: no wheezing copd exacerbation is improving afebrile chf improving reviewed chart and labs Subjective ROS Limited/Unobtainable: Yes HEENT: Reports: no symptoms Cardiovascular: Reports: no symptoms Allergies: Coded Allergies: No Known Allergies (Unverified , 08/07/19) Objective Last 24 Hour Vital Signs Date Time Temp Pulse Resp B/P (MAP) Pulse Ox O2 Delivery O2 Flow Rate FiO2 08/09/19 16:20 90 08/09/19 16:16 92 16 99 Room Air 21 89 16 90 08/09/19 16:00 97.3 93 22 112/65 (81) 94 08/09/19 12:00 97.6 87 20 105/67 (80) 98 08/09/19 11:50 86 08/09/19 11:11 92 16 96 Nasal Cannula 2.0 28 90 16 91 08/09/19 09:35 104 134/85 08/09/19 09:35 104 08/09/19 08:39 Nasal Cannula 2.0 08/09/19 08:00 97.2 104 24 134/85 (101) 93 08/09/19 07:46 97 08/09/19 07:06 97 Nasal Cannula 2.0 28 08/09/19 07:06 92 16 96 Nasal Cannula 2.0 28 95 16 97 08/09/19 04:00 97 08/09/19 03:28 94 16 99 Nasal Cannula 2.0 28 96 16 96 08/09/19 00:53 97.5 99 21 118/57 (77) 96 08/09/19 00:00 91 08/08/19 23:59 92 16 99 Nasal Cannula 2.0 28 87 16 98 08/08/19 21:00 Nasal Cannula 2.0 08/08/19 20:00 92 08/08/19 20:00 96.6 85 21 103/70 (81) 98 08/08/19 19:37 94 Nasal Cannula 2.0 28 08/08/19 19:37 88 16 96 Nasal Cannula 2.0 89 18 94 Intake and Output 08/08/19 08/09/19 18:59 06:59 Intake Total 1200 ml Output Total 700 ml Balance 1200 ml -700 ml Intake Oral 1200 ml Output Urine Total 700 ml # Voids 3 # Bowel Movements 1 1 Laboratory Tests 08/08/19 20:00: Troponin I 0.040 08/09/19 06:30: White Blood Count 8.1, Red Blood Count 4.17L, Hemoglobin 11.9L, Hematocrit 36.6L , Mean Corpuscular Volume 88, Mean Corpuscular Hemoglobin 28.6, Mean Corpuscular Hemoglobin Concent 32.6, Red Cell Distribution Width 15.4H, Platelet Count 188, Mean Platelet Volume 5.7L, Neutrophils (%) (Auto) , Lymphocytes (%) (Auto) , Monocytes (%) (Auto) , Eosinophils (%) (Auto) , Basophils (%) (Auto) , Differential Total Cells Counted 100, Neutrophils % ( Manual) 94H, Lymphocytes % (Manual) 4L, Monocytes % (Manual) 2, Eosinophils % ( Manual) 0, Basophils % (Manual) 0, Band Neutrophils 0, Platelet Estimate Adequate, Platelet Morphology Normal, Anisocytosis 1+, Sodium Level 141, Potassium Level 4.5, Chloride Level 101, Carbon Dioxide Level 31, Anion Gap 9, Blood Urea Nitrogen 22H, Creatinine 1.1, Estimat Glomerular Filtration Rate , Glucose Level 138H, Calcium Level 8.5, Triglycerides Level 28L, Cholesterol Level 82, LDL Cholesterol 24, HDL Cholesterol 51, Cholesterol/HDL Ratio 1.6L Height (Feet): 5 Height (Inches): 7.00 Weight (Pounds): 156 Cardiovascular: normal rate Respiratory/Chest: lungs clear Abdomen: soft Duane Coy MD Aug 09, 2019 19:35
[2019-08-09 20:00] VITALS: BP 109/72
[2019-08-09] MEDS: Atorvastatin 20mg tab ORAL SCH (21:46)
[2019-08-09] MEDS: Depakote ER 250mg tab ORAL SCH (21:46)
--- NOTE | 2019-08-09 23:56 | Cardiology Progress Note ---
Assessment/Plan Assessment/Plan 1. Acute on chronic systolic and diastolic CHF, may have to resume low dose lasix. 2. History of paroxysmal atrial fibrillation, currently in sinus rhythm. 3. Left bundle-branch block. 4. History of hypertension. 5. History of coronary artery disease, questionable. No details. 12-lead electrocardiogram with left bundle branch block does not allow us to assess ST- segment changes.AMI is ruled out. 6. History of hyperlipidemia. Subjective Subjective Sinus rhythm at rate of 80. Objective Last 24 Hour Vital Signs Date Time Temp Pulse Resp B/P (MAP) Pulse Ox O2 Delivery O2 Flow Rate FiO2 08/09/19 23:08 80 16 97 Room Air 21 74 12 94 08/09/19 19:45 96 Nasal Cannula 2.0 28 08/09/19 16:20 90 08/09/19 16:16 92 16 99 Room Air 21 89 16 90 08/09/19 16:00 97.3 93 22 112/65 (81) 94 08/09/19 12:00 97.6 87 20 105/67 (80) 98 08/09/19 11:50 86 08/09/19 11:11 92 16 96 Nasal Cannula 2.0 28 90 16 91 08/09/19 09:35 104 134/85 08/09/19 09:35 104 08/09/19 08:39 Nasal Cannula 2.0 08/09/19 08:00 97.2 104 24 134/85 (101) 93 08/09/19 07:46 97 08/09/19 07:06 97 Nasal Cannula 2.0 28 08/09/19 07:06 92 16 96 Nasal Cannula 2.0 28 95 16 97 08/09/19 04:00 97 08/09/19 03:28 94 16 99 Nasal Cannula 2.0 28 96 16 96 08/09/19 00:53 97.5 99 21 118/57 (77) 96 08/09/19 00:00 91 08/08/19 23:59 92 16 99 Nasal Cannula 2.0 28 87 16 98 Intake and Output 08/08/19 08/09/19 19:00 07:00 Intake Total 1200 ml Output Total 700 ml Balance 1200 ml -700 ml Intake Oral 1200 ml Output Urine Total 700 ml # Voids 3 # Bowel Movements 1 1 2D Echo: LVEF 25%, + WMA, RVSP 58 mmHg, Mild RV dilation, Mod MR, Pseudo- normal phys Laboratory Tests Test 08/09/19 06:30 White Blood Count 8.1 K/UL (4.8-10.8) Red Blood Count 4.17 M/UL (4.70-6.10) L Hemoglobin 11.9 G/DL (14.2-18.0) L Hematocrit 36.6 % (42.0-52.0) L Mean Corpuscular Volume 88 FL (80-99) Mean Corpuscular Hemoglobin 28.6 PG (27.0-31.0) Mean Corpuscular Hemoglobin Concent 32.6 G/DL (32.0-36.0) Red Cell Distribution Width 15.4 % (11.6-14.8) H Platelet Count 188 K/UL (150-450) Mean Platelet Volume 5.7 FL (6.5-10.1) L Neutrophils (%) (Auto) % (45.0-75.0) Lymphocytes (%) (Auto) % (20.0-45.0) Monocytes (%) (Auto) % (1.0-10.0) Eosinophils (%) (Auto) % (0.0-3.0) Basophils (%) (Auto) % (0.0-2.0) Differential Total Cells Counted 100 Neutrophils % (Manual) 94 % (45-75) H Lymphocytes % (Manual) 4 % (20-45) L Monocytes % (Manual) 2 % (1-10) Eosinophils % (Manual) 0 % (0-3) Basophils % (Manual) 0 % (0-2) Band Neutrophils 0 % (0-8) Platelet Estimate Adequate Platelet Morphology Normal Anisocytosis 1+ Sodium Level 141 MMOL/L (136-145) Potassium Level 4.5 MMOL/L (3.5-5.1) Chloride Level 101 MMOL/L (98-107) Carbon Dioxide Level 31 MMOL/L (21-32) Anion Gap 9 mmol/L (5-15) Blood Urea Nitrogen 22 mg/dL (7-18) H Creatinine 1.1 MG/DL (0.55-1.30) Estimat Glomerular Filtration Rate mL/min (>60) Glucose Level 138 MG/DL (74-106) H Calcium Level 8.5 MG/DL (8.5-10.1) Triglycerides Level 28 MG/DL (30-150) L Cholesterol Level 82 MG/DL (< 200) LDL Cholesterol 24 mg/dL (<100) HDL Cholesterol 51 MG/DL (40-60) Cholesterol/HDL Ratio 1.6 (3.3-4.4) L Microbiology Date/Time Source Procedure Growth Status 08/07/19 13:35 Blood Blood Culture - Preliminary NO GROWTH AFTER 24 HOURS Resulted 08/07/19 13:20 Blood Blood Culture - Preliminary NO GROWTH AFTER 24 HOURS Resulted 08/07/19 20:40 Sputum Expectorated Gram Stain - Final Resulted 08/07/19 20:40 Sputum Expectorated Sputum Culture - Preliminary NORMAL UPPER RESPIRATORY KRISTINA PRESENT Resulted 08/07/19 14:00 Nasal Nares - Final Complete 08/07/19 14:00 Nasal Nares - Final Complete 08/07/19 14:00 Rectum Received Objective HEENT: Atraumatic and normocephalic. Anicteric. Pupils are equal, round, and reactive to light and accommodation. Extraocular muscles intact. NECK: JVP is less than 5 cm. No carotid bruit. Carotid upstrokes 2+ bilaterally. CARDIOVASCULAR: Normal S1, S2. Regular rate and rhythm. A 2/6 mid systolic murmur at the left sternal border. PMI is at the fourth intercostal space in the midclavicular line. LUNGS: Diminished breath sounds in both lungs with coarse respiratory sounds and scattered wheezing. ABDOMEN: Soft, nontender, and nondistended. No hepatosplenomegaly. Positive bowel sounds. EXTREMITIES: No evidence of edema, clubbing, or cyanosis. Arben Ye MD Aug 09, 2019 23:56
[2019-08-10] VITALS: BP 106/69
--- NOTE | 2019-08-10 03:00 | Progress Note ---
DATE: 08/09/2019 SUBJECTIVE: The patient is calmer, more redirectable, not agitated today. Calm, cooperative. He has a history of episodes of agitation, according to staff. MENTAL STATUS EXAMINATION: The patient is alert and oriented times self. He knows he is in the hospital. Mood is anxious. Affect is flat. Thought process is concrete. Thought content, no suicidal or homicidal ideation. ASSESSMENT: Dementia with behavior disturbance. PLAN: 1. Continue the risperidone. 2. Continue to readjust the meds. Tico Lebron M.D. DR: Michael JOB#: [id number] CC: [email or web address]
[2019-08-10] MEDS: Albuterol/Ipratropium 3ml neb HHN SCH ×6 (03:05→23:37)
[2019-08-10 04:00] VITALS: BP 131/81
[2019-08-10] MEDS: Levothyroxine 25mcg tab ORAL SCH (06:24)
[2019-08-10 07:28] LABS: HEMATOCRIT 41.8 % (42.0-52.0); HEMOGLOBIN 13.1 G/DL (14.2-18.0); MEAN CORPUSCULAR VOLUME 90 FL (80-99); PLATELET COUNT 193 K/UL (150-450); RED BLOOD COUNT 4.63 M/UL (4.70-6.10); RED CELL DISTRIBUTION WIDTH 17.1 % (11.6-14.8); WHITE BLOOD COUNT 7.4 K/UL (4.8-10.8)
[2019-08-10 07:54] LABS: ANION GAP 6 mmol/L (5-15); BLOOD UREA NITROGEN 21 mg/dL (7-18); CARBON DIOXIDE 31 MMOL/L (21-32); CHLORIDE 103 MMOL/L (98-107); POTASSIUM 4.8 MMOL/L (3.5-5.1); SODIUM 140 MMOL/L (136-145)
[2019-08-10 08:00] VITALS: BP 120/80
--- NOTE | 2019-08-10 08:35 | Cardiology Report ---
APPROVED REPORT EKG Measurement Heart [id number] Sinus rhythm with occasional premature ventricular complexes Left bundle branch block Abnormal ECG
[2019-08-10] MEDS: Doxycycline Monohydrate 100mg ORAL SCH ×2 (10:00→20:39)
[2019-08-10] MEDS: Metoprolol Succinate XL 25mg tab ORAL SCH (10:00)
[2019-08-10] MEDS: Levodopa/Carbidopa 25/100 tab ORAL SCH ×3 (10:00→17:29)
[2019-08-10] MEDS: Aspirin EC 81mg tab ORAL SCH (10:00)
[2019-08-10] MEDS: guaiFENesin ER 600mg tab ORAL SCH ×2 (10:00→17:29)
[2019-08-10] MEDS: Digoxin 0.125mg tab ORAL SCH (10:01)
[2019-08-10 12:00] VITALS: BP 122/83
--- NOTE | 2019-08-10 15:54 | Diagnostic Imaging Report ---
Indications: Dysphagia Technique: Patient ingested multiple substances under the supervision of speech pathology. Video fluoroscopic recording performed. Total fluoroscopy time 145 seconds. Total dose area product 0.01367 mGycm2 Total number of images-8 Comparison: none Findings: Ingestion of thin liquid barium demonstrates fairly consistent aspiration, even with the chin to maneuver. Remaining substances did not demonstrate significant penetration or aspiration. There is early pooling of contrast in the hypopharynx. Impression: Positive for aspiration of thin liquid barium
[2019-08-10 16:00] VITALS: BP 123/67
--- NOTE | 2019-08-10 16:10 | Pulmonology Progress Note ---
Assessment/Plan Assessment/Plan Pulmonary Progress Note HPI Patient is a 74 year old man with history of Congestive Heart Failure, HTN, CAD , Atrial Fibrillation, Chronic Obstructive Pulmonary Disease, admitted complaining of wheezing, nonproductive cough and shortness of breath. The patient is a poor historian. No new complaints History of previous fracture of right upper arm. Allergies: No Known Allergies Past Medical History: Congestive Heart Failure, Hypertension, Coronary Artery Disease, Atrial Fibrillation, Chronic Obstructive Pulmonary Disease, Hyperlipidemia, Hypothyroidism, Parkinsons Disease, Schizophrenia, Anxiety ROS: Negative aside from above Physical Exam Vital Signs Noted General: WDWN HEENT: Moist mm, NCAT Chest: CTAB Heart: HS1, HS2, RRR Abdomen: SNTND Extremities: Well perfused, no edema SKATE HOP: Intact Impression: Primary Impression: Chronic Obstructive Pulmonary Disease exacerbation, no focal infiltrates Congestive heart failure with reduced EF, Moderate Mitral regurgitation, mod- severe Pulmonary Hypertension Hypertension Coronary Artery Disease Atrial Fibrillation - currently SR Hyperlipidemia Hypothyroidism Parkinsons Disease Schizophrenia Anxiety Plan Diurese PRN per Cardiology Solumedrol - wean as tolerated Doxycycline ST evaluation Aspiration precautions HHN O2 PRN PPX LE Dupplex - negative 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 Anteroseptal dyskinesis. Distal posterior , distal inferoseptal, anterior and apical akinesis.Best motion is noted in the proximal posterior and lateral brown Left ventricular ejection fraction estimated to be 20-25 %. Increased E point-interventricular septal separation c/w left ventricular dysfunction. No evidence of pericardial effusion. Left and right atrial chambers are within normal limits. Mild right ventricular dilatation. Focal aortic valve sclerosis with adequate cusp excursion. Thickened mitral valve leaflets with normal excursion. Mitral annulus and aortic root calcification. Pulmonic valve not well visualized. Normal tricuspid valve structure. IVC at normal size without physiologic collapse. A color flow and spectral Doppler study was performed and revealed: No evidence of aortic regurgitation. Moderate mitral regurgitation. Mitral inflow velocities indicates possible pseudo normalization pattern implying moderately elevated left atrial pressure (Grade II ). Moderate tricuspid regurgitation. Tricuspid systolic velocities suggests peak right ventricular systolic pressure of 58 mmHg, consistent with moderate to severe pulmonary hypertension. Subjective ROS Limited/Unobtainable: No Allergies: Coded Allergies: No Known Allergies (Unverified , 08/07/19) Objective Last 24 Hour Vital Signs Date Time Temp Pulse Resp B/P (MAP) Pulse Ox O2 Delivery O2 Flow Rate FiO2 08/10/19 15:52 86 16 98 Nasal Cannula 2.0 28 83 16 95 08/10/19 12:00 98.6 76 19 122/83 (96) 96 08/10/19 11:38 76 08/10/19 11:16 84 16 97 Nasal Cannula 2.0 28 82 14 95 08/10/19 10:01 72 08/10/19 10:00 72 120/80 08/10/19 08:37 Nasal Cannula 2.0 08/10/19 08:00 98.0 72 18 120/80 (93) 97 08/10/19 07:38 91 08/10/19 07:22 86 16 98 Nasal Cannula 2.0 28 85 16 97 08/10/19 07:21 97 Nasal Cannula 2.0 28 08/10/19 04:00 85 08/10/19 04:00 97.7 88 20 131/81 (98) 98 08/10/19 03:05 82 16 99 Nasal Cannula 2.0 28 84 16 97 08/10/19 00:00 79 08/10/19 00:00 97.5 81 18 106/69 (81) 98 08/09/19 23:08 80 16 97 Room Air 21 74 12 94 08/09/19 21:00 Nasal Cannula 2.0 08/09/19 20:00 86 08/09/19 20:00 97.3 85 19 109/72 (84) 93 08/09/19 19:45 96 Nasal Cannula 2.0 28 08/09/19 16:20 90 08/09/19 16:16 92 16 99 Room Air 21 89 16 90 Intake and Output 08/09/19 08/10/19 19:00 07:00 Intake Total 320 ml Output Total 400 ml Balance -80 ml Intake Oral 320 ml Output Urine Total 400 ml # Voids 1 # Bowel Movements 2 1 Microbiology Date/Time Source Procedure Growth Status 08/07/19 20:40 Sputum Expectorated Gram Stain - Final Complete 08/07/19 20:40 Sputum Expectorated Sputum Culture - Final NORMAL UPPER RESPIRATORY KRISTINA PRESENT Complete Laboratory Tests 08/10/19 05:53: White Blood Count 7.4, Red Blood Count 4.63L, Hemoglobin 13.1L, Hematocrit 41.8L , Mean Corpuscular Volume 90, Mean Corpuscular Hemoglobin 28.4, Mean Corpuscular Hemoglobin Concent 31.4L, Red Cell Distribution Width 17.1H, Platelet Count 193, Mean Platelet Volume 5.5L, Neutrophils (%) (Auto) , Lymphocytes (%) (Auto) , Monocytes (%) (Auto) , Eosinophils (%) (Auto) , Basophils (%) (Auto) , Differential Total Cells Counted 100, Neutrophils % ( Manual) 89H, Lymphocytes % (Manual) 7L, Monocytes % (Manual) 4, Eosinophils % ( Manual) 0, Basophils % (Manual) 0, Band Neutrophils 0, Platelet Estimate Adequate, Platelet Morphology Normal, Anisocytosis 1+, Sodium Level 140, Potassium Level 4.8, Chloride Level 103, Carbon Dioxide Level 31, Anion Gap 6, Blood Urea Nitrogen 21H, Creatinine 1.0, Estimat Glomerular Filtration Rate , Glucose Level 126H, Calcium Level 9.0 Current Medications Medications (Trade) Dose Ordered Sig/Brandy Route PRN Reason Start Time Stop Time Status Last Admin Dose Admin Albuterol/ Ipratropium (Albuterol/ Ipratropium) 3 ml Q4HRT HHN 08/07/19 19:00 08/12/19 18:59 08/10/19 15:00 Aspirin (Ecotrin) 81 mg DAILY ORAL 08/08/19 09:00 09/07/19 08:59 08/10/19 10:00 Atorvastatin Calcium (Lipitor) 40 mg BEDTIME ORAL 08/07/19 21:00 09/06/19 20:59 08/09/19 21:46 Carbidopa/Levodopa (Sinemet 25/100) 1 tab THREE TIMES A DAY ORAL 08/08/19 09:00 09/07/19 08:59 08/10/19 13:26 Digoxin (Lanoxin) 0.125 mg DAILY ORAL 08/08/19 09:00 09/07/19 08:59 08/10/19 10:01 Divalproex Sodium (Depakote ER) 750 mg BEDTIME ORAL 08/08/19 21:00 09/07/19 20:59 08/09/19 21:46 Doxycycline Monohydrate (Doxycycline Monohydrate) 100 mg EVERY 12 HOURS ORAL 08/07/19 21:00 08/14/19 20:59 08/10/19 10:00 Guaifenesin (Mucinex ER) 600 mg TWICE A DAY ORAL 08/08/19 09:00 09/07/19 08:59 08/10/19 10:00 Levothyroxine Sodium (Synthroid) 25 mcg ACBREAKFAST ORAL 08/08/19 06:30 09/07/19 06:29 08/10/19 06:24 Lorazepam (Ativan) 1 mg Q6H PRN ORAL For Anxiety 08/08/19 15:00 08/15/19 14:59 08/08/19 23:01 Metoprolol Succinate (Toprol XL) 25 mg DAILY ORAL 08/08/19 09:00 09/07/19 08:59 08/10/19 10:00 Multivitamins (Multivitamins) 1 tab DAILY ORAL 08/08/19 09:00 09/07/19 08:59 08/10/19 10:00 Prednisone (predniSONE) 30 mg Q24H ORAL 08/09/19 21:00 09/08/19 20:59 08/09/19 21:47 Risperidone (RisperDAL) 2 mg BEDTIME ORAL 08/08/19 21:00 09/07/19 20:59 08/09/19 21:47 Collins Rust MD Aug 10, 2019 16:10
[2019-08-10] MEDS ORDERED: LORazepam 1mg tab ORAL PRN (18:27)
[2019-08-10 20:00] VITALS: BP 103/69
--- NOTE | 2019-08-10 20:30 | Progress Note ---
DATE: 08/10/2019 SUBJECTIVE: The patient is calmer, more manageable, more cooperative. No behavior issues noted. Eating and sleeping, appetite is adequate. MENTAL STATUS EXAMINATION: Alert and oriented times self and place. Mood is neutral. Affect is constricted. Congruent with mood. Thought process is concrete. Thought content, no suicidal or homicidal ideation. Memory is impaired. Insight and judgment is impaired. ASSESSMENT: 1. Dementia with behavior disturbance. 2. Schizophrenia. PLAN: 1. We will continue the risperidone. 2. Provide the patient with reality orientation. Tico Lebron M.D. DR: Arleen JOB#: [id number] CC:
[2019-08-10] MEDS: Atorvastatin 20mg tab ORAL SCH (20:39)
[2019-08-10] MEDS: Depakote ER 250mg tab ORAL SCH (20:39)
--- NOTE | 2019-08-10 22:07 | General Progress Note ---
Assessment/Plan Problem List: (1) Schizophrenia ICD Codes: F20.9 - Schizophrenia, unspecified SNOMED: 96278322 Qualifiers: Qualified Codes: F20.9 - Schizophrenia, unspecified (2) History of Parkinson's disease ICD Codes: Z86.69 - Personal history of other diseases of the nervous system and sense organs SNOMED: 890715114 (3) CHF (congestive heart failure) ICD Codes: I50.9 - Heart failure, unspecified SNOMED: 36044680 Qualifiers: Qualified Codes: I50.9 - Heart failure, unspecified (4) COPD exacerbation ICD Codes: J44.1 - Chronic obstructive pulmonary disease with (acute) exacerbation SNOMED: 901164728 Status: progressing Assessment/Plan: no wheezing copd exacerbation is improving dc planning afebrile reviewed chart and labs and meds Subjective ROS Limited/Unobtainable: Yes Constitutional: Reports: no symptoms Respiratory: Reports: no symptoms Allergies: Coded Allergies: No Known Allergies (Unverified , 08/07/19) Objective Last 24 Hour Vital Signs Date Time Temp Pulse Resp B/P (MAP) Pulse Ox O2 Delivery O2 Flow Rate FiO2 08/10/19 20:08 Nasal Cannula 2.0 08/10/19 20:00 97.6 76 20 103/69 (80) 96 08/10/19 19:26 94 Nasal Cannula 2.0 28 08/10/19 19:23 83 16 99 Nasal Cannula 2.0 28 82 16 94 08/10/19 16:00 98.1 67 19 123/67 (85) 98 08/10/19 15:52 86 16 98 Nasal Cannula 2.0 28 83 16 95 08/10/19 15:18 76 08/10/19 12:00 98.6 76 19 122/83 (96) 96 08/10/19 11:38 76 08/10/19 11:16 84 16 97 Nasal Cannula 2.0 28 82 14 95 08/10/19 10:01 72 08/10/19 10:00 72 120/80 08/10/19 08:37 Nasal Cannula 2.0 08/10/19 08:00 98.0 72 18 120/80 (93) 97 08/10/19 07:38 91 08/10/19 07:22 86 16 98 Nasal Cannula 2.0 28 85 16 97 11/20/19 07:21 97 Nasal Cannula 2.0 28 08/10/19 04:00 85 08/10/19 04:00 97.7 88 20 131/81 (98) 98 08/10/19 03:05 82 16 99 Nasal Cannula 2.0 28 84 16 97 08/10/19 00:00 79 08/10/19 00:00 97.5 81 18 106/69 (81) 98 08/09/19 23:08 80 16 97 Room Air 21 74 12 94 Intake and Output 08/09/19 08/10/19 18:59 06:59 Intake Total 320 ml Output Total 400 ml Balance -80 ml Intake Oral 320 ml Output Urine Total 400 ml # Voids 1 # Bowel Movements 2 1 Laboratory Tests 08/10/19 05:53: White Blood Count 7.4, Red Blood Count 4.63L, Hemoglobin 13.1L, Hematocrit 41.8L , Mean Corpuscular Volume 90, Mean Corpuscular Hemoglobin 28.4, Mean Corpuscular Hemoglobin Concent 31.4L, Red Cell Distribution Width 17.1H, Platelet Count 193, Mean Platelet Volume 5.5L, Neutrophils (%) (Auto) , Lymphocytes (%) (Auto) , Monocytes (%) (Auto) , Eosinophils (%) (Auto) , Basophils (%) (Auto) , Differential Total Cells Counted 100, Neutrophils % ( Manual) 89H, Lymphocytes % (Manual) 7L, Monocytes % (Manual) 4, Eosinophils % ( Manual) 0, Basophils % (Manual) 0, Band Neutrophils 0, Platelet Estimate Adequate, Platelet Morphology Normal, Anisocytosis 1+, Sodium Level 140, Potassium Level 4.8, Chloride Level 103, Carbon Dioxide Level 31, Anion Gap 6, Blood Urea Nitrogen 21H, Creatinine 1.0, Estimat Glomerular Filtration Rate , Glucose Level 126H, Calcium Level 9.0 Height (Feet): 5 Height (Inches): 7.00 Weight (Pounds): 141 Cardiovascular: normal rate Respiratory/Chest: lungs clear Abdomen: soft Duane Coy MD Aug 10, 2019 22:07
--- NOTE | 2019-08-10 23:57 | Cardiology Progress Note ---
Assessment/Plan Assessment/Plan 1. Acute on chronic systolic and diastolic CHF, may have to resume low dose lasix. 2. History of paroxysmal atrial fibrillation, currently in sinus rhythm. 3. Left bundle-branch block. 4. History of hypertension. 5. History of coronary artery disease, questionable. No details. 12-lead electrocardiogram with left bundle branch block does not allow us to assess ST- segment changes.AMI is ruled out. 6. History of hyperlipidemia, continue atorvastatin. Subjective Subjective Transferred to the med surg unit. No cardiac events. Objective Last 24 Hour Vital Signs Date Time Temp Pulse Resp B/P (MAP) Pulse Ox O2 Delivery O2 Flow Rate FiO2 08/10/19 23:37 81 16 100 Nasal Cannula 2.0 28 78 16 99 08/10/19 20:08 Nasal Cannula 2.0 08/10/19 20:00 97.6 76 20 103/69 (80) 96 08/10/19 19:26 94 Nasal Cannula 2.0 28 08/10/19 19:23 83 16 99 Nasal Cannula 2.0 28 82 16 94 08/10/19 16:00 98.1 67 19 123/67 (85) 98 08/10/19 15:52 86 16 98 Nasal Cannula 2.0 28 83 16 95 08/10/19 15:18 76 08/10/19 12:00 98.6 76 19 122/83 (96) 96 08/10/19 11:38 76 08/10/19 11:16 84 16 97 Nasal Cannula 2.0 28 82 14 95 08/10/19 10:01 72 08/10/19 10:00 72 120/80 08/10/19 08:37 Nasal Cannula 2.0 08/10/19 08:00 98.0 72 18 120/80 (93) 97 08/10/19 07:38 91 08/10/19 07:22 86 16 98 Nasal Cannula 2.0 28 85 16 97 08/10/19 07:21 97 Nasal Cannula 2.0 28 08/10/19 04:00 85 08/10/19 04:00 97.7 88 20 131/81 (98) 98 08/10/19 03:05 82 16 99 Nasal Cannula 2.0 28 84 16 97 08/10/19 00:00 79 08/10/19 00:00 97.5 81 18 106/69 (81) 98 Intake and Output 08/09/19 08/10/19 18:59 06:59 Intake Total 320 ml Output Total 400 ml Balance -80 ml Intake Oral 320 ml Output Urine Total 400 ml # Voids 1 # Bowel Movements 2 1 2D Echo: LVEF 25%, + WMA, RVSP 58 mmHg, Mild RV dilation, Mod MR, Pseudo- normal phy Laboratory Tests Test 08/10/19 05:53 White Blood Count 7.4 K/UL (4.8-10.8) Red Blood Count 4.63 M/UL (4.70-6.10) L Hemoglobin 13.1 G/DL (14.2-18.0) L Hematocrit 41.8 % (42.0-52.0) L Mean Corpuscular Volume 90 FL (80-99) Mean Corpuscular Hemoglobin 28.4 PG (27.0-31.0) Mean Corpuscular Hemoglobin Concent 31.4 G/DL (32.0-36.0) L Red Cell Distribution Width 17.1 % (11.6-14.8) H Platelet Count 193 K/UL (150-450) Mean Platelet Volume 5.5 FL (6.5-10.1) L Neutrophils (%) (Auto) % (45.0-75.0) Lymphocytes (%) (Auto) % (20.0-45.0) Monocytes (%) (Auto) % (1.0-10.0) Eosinophils (%) (Auto) % (0.0-3.0) Basophils (%) (Auto) % (0.0-2.0) Differential Total Cells Counted 100 Neutrophils % (Manual) 89 % (45-75) H Lymphocytes % (Manual) 7 % (20-45) L Monocytes % (Manual) 4 % (1-10) Eosinophils % (Manual) 0 % (0-3) Basophils % (Manual) 0 % (0-2) Band Neutrophils 0 % (0-8) Platelet Estimate Adequate Platelet Morphology Normal Anisocytosis 1+ Sodium Level 140 MMOL/L (136-145) Potassium Level 4.8 MMOL/L (3.5-5.1) Chloride Level 103 MMOL/L (98-107) Carbon Dioxide Level 31 MMOL/L (21-32) Anion Gap 6 mmol/L (5-15) Blood Urea Nitrogen 21 mg/dL (7-18) H Creatinine 1.0 MG/DL (0.55-1.30) Estimat Glomerular Filtration Rate mL/min (>60) Glucose Level 126 MG/DL (74-106) H Calcium Level 9.0 MG/DL (8.5-10.1) Objective HEENT: Atraumatic and normocephalic. Anicteric. Pupils are equal, round, and reactive to light and accommodation. Extraocular muscles intact. NECK: JVP is less than 5 cm. No carotid bruit. Carotid upstrokes 2+ bilaterally. CARDIOVASCULAR: Normal S1, S2. Regular rate and rhythm. A 2/6 mid systolic murmur at the left sternal border. PMI is at the fourth intercostal space in the midclavicular line. LUNGS: Diminished breath sounds in both lungs with coarse respiratory sounds and scattered wheezing. ABDOMEN: Soft, nontender, and nondistended. No hepatosplenomegaly. Positive bowel sounds. EXTREMITIES: No evidence of edema, clubbing, or cyanosis. Arben Ye MD Aug 10, 2019 23:57
[2019-08-11] VITALS (7 sets, daily range): BP systolic 99–133; BP diastolic 57–80
[2019-08-11] MEDS: Albuterol/Ipratropium 3ml neb HHN SCH ×6 (03:00→23:59)
[2019-08-11] MEDS: Levothyroxine 25mcg tab ORAL SCH (05:34)
[2019-08-11 06:35] LABS: BASOPHILS % (AUTO) 0.6 % (0.0-2.0); EOSINOPHILS % (AUTO) 0.2 % (0.0-3.0); LYMPHOCYTES % (AUTO) 15.2 % (20.0-45.0); MEAN CORPUSCULAR VOLUME 91 FL (80-99); MONOCYTES % (AUTO) 4.7 % (1.0-10.0); NEUTROPHILS % (AUTO) 79.3 % (45.0-75.0); PLATELET COUNT 215 K/UL (150-450); RED BLOOD COUNT 4.94 M/UL (4.70-6.10); RED CELL DISTRIBUTION WIDTH 16.6 % (11.6-14.8); WHITE BLOOD COUNT 7.8 K/UL (4.8-10.8)
[2019-08-11 07:20] LABS: ANION GAP 2 mmol/L (5-15); BLOOD UREA NITROGEN 21 mg/dL (7-18); CALCIUM 8.8 MG/DL (8.5-10.1); CARBON DIOXIDE 34 MMOL/L (21-32); CHLORIDE 103 MMOL/L (98-107); CREATININE 1.1 MG/DL (0.55-1.30); SODIUM 139 MMOL/L (136-145)
[2019-08-11 07:21] LABS: POTASSIUM 6.2 MMOL/L (3.5-5.1)
[2019-08-11] MEDS ORDERED: Metoprolol Succinate XL 25mg tab ORAL SCH (09:00)
[2019-08-11] MEDS: Levodopa/Carbidopa 25/100 tab ORAL SCH ×3 (09:57→18:02)
[2019-08-11] MEDS: Aspirin EC 81mg tab ORAL SCH (09:58)
[2019-08-11] MEDS: Doxycycline Monohydrate 100mg ORAL SCH ×2 (09:58→20:36)
[2019-08-11] MEDS: Digoxin 0.125mg tab ORAL SCH (09:58)
[2019-08-11] MEDS: guaiFENesin ER 600mg tab ORAL SCH ×2 (09:59→18:02)
[2019-08-11] MEDS ORDERED: DOXYCYCLINE HY100 M2 PO ×2 (11:45→11:48)
[2019-08-11] MEDS ORDERED: PREDNISONE20 M1 PO (16:15)
[2019-08-11] MEDS: Atorvastatin 20mg tab ORAL SCH (20:36)
[2019-08-11] MEDS: Depakote ER 250mg tab ORAL SCH (20:36)
--- NOTE | 2019-08-11 21:04 | General Progress Note ---
Assessment/Plan Problem List: (1) Schizophrenia ICD Codes: F20.9 - Schizophrenia, unspecified SNOMED: [id number] Qualifiers: Qualified Codes: F20.9 - Schizophrenia, unspecified (2) History of Parkinson's disease ICD Codes: Z86.69 - Personal history of other diseases of the nervous system and sense organs SNOMED: [id number] (3) CHF (congestive heart failure) ICD Codes: I50.9 - Heart failure, unspecified SNOMED: 68620079 Qualifiers: Qualified Codes: I50.9 - Heart failure, unspecified (4) COPD exacerbation ICD Codes: J44.1 - Chronic obstructive pulmonary disease with (acute) exacerbation SNOMED: 787210047 Status: progressing Assessment/Plan: no wheezing copd exacerbation is improving dc to snf continue doxycycline and predinsone Subjective Allergies: Coded Allergies: No Known Allergies (Unverified , 08/07/19) Objective Last 24 Hour Vital Signs Date Time Temp Pulse Resp B/P (MAP) Pulse Ox O2 Delivery O2 Flow Rate FiO2 08/11/19 20:00 98.0 64 18 99/57 (71) 99 08/11/19 19:51 97 Nasal Cannula 2.0 28 08/11/19 19:51 76 18 98 Nasal Cannula 2.0 28 74 20 97 08/11/19 16:00 97.6 82 19 121/79 (93) 97 08/11/19 12:00 98.4 75 118/77 (91) 08/11/19 11:41 73 20 98 Nasal Cannula 2.0 28 75 20 96 08/11/19 10:18 94 133/73 (93) 08/11/19 09:59 72 126/79 08/11/19 09:58 72 08/11/19 09:06 72 20 99 Nasal Cannula 2.0 28 74 20 94 08/11/19 09:05 95 Nasal Cannula 2.0 28 08/11/19 09:00 Nasal Cannula 2.0 08/11/19 08:00 97.8 82 18 126/79 (95) 97 08/11/19 04:00 97.0 76 20 126/80 (95) 96 08/11/19 00:00 98.4 85 20 113/64 (80) 98 08/10/19 23:37 81 16 100 Nasal Cannula 2.0 28 78 16 99 Intake and Output 08/10/19 08/11/19 19:00 07:00 Intake Total 740 ml Output Total 450 ml Balance 740 ml -450 ml Intake Oral 740 ml Output Urine Total 450 ml # Bowel Movements 1 1 Laboratory Tests 08/11/19 05:45: White Blood Count 7.8, Red Blood Count 4.94, Hemoglobin 14.0L, Hematocrit 45.0, Mean Corpuscular Volume 91, Mean Corpuscular Hemoglobin 28.3, Mean Corpuscular Hemoglobin Concent 31.1L, Red Cell Distribution Width 16.6H, Platelet Count 215 , Mean Platelet Volume 5.8L, Neutrophils (%) (Auto) 79.3H, Lymphocytes (%) (Auto ) 15.2L, Monocytes (%) (Auto) 4.7, Eosinophils (%) (Auto) 0.2, Basophils (%) ( Auto) 0.6, Sodium Level 139, Potassium Level 6.2*H, Chloride Level 103, Carbon Dioxide Level 34H, Anion Gap 2L, Blood Urea Nitrogen 21H, Creatinine 1.1, Estimat Glomerular Filtration Rate , Glucose Level 104, Calcium Level 8.8 08/11/19 09:30: Potassium Level 5.1 Height (Feet): 5 Height (Inches): 7.00 Weight (Pounds): 141 EENT: PERRL/EOMI Neck: supple Cardiovascular: normal rate Respiratory/Chest: lungs clear Abdomen: soft Duane Coy MD Aug 11, 2019 21:04
--- NOTE | 2019-08-11 21:09 | Pulmonology Progress Note ---
Assessment/Plan Assessment/Plan Pulmonary Progress Note HPI Patient is a 74 year old man with history of Congestive Heart Failure, HTN, CAD , Atrial Fibrillation, Chronic Obstructive Pulmonary Disease, admitted complaining of wheezing, nonproductive cough and shortness of breath. The patient is a poor historian. No new complaints, abnormal swallow History of previous fracture of right upper arm. 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 Impression: Primary Impression: Chronic Obstructive Pulmonary Disease exacerbation, no focal infiltrates Congestive heart failure with reduced EF, Moderate Mitral regurgitation, mod- severe Pulmonary Hypertension Hypertension Coronary Artery Disease Atrial Fibrillation - currently SR Hyperlipidemia Hypothyroidism Parkinsons Disease Schizophrenia Anxiety Plan Diurese PRN per Cardiology Prednisone - wean as tolerated Doxycycline ST reccs Aspiration precautions HHN O2 PRN PPX LE Dupplex - negative 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 Anteroseptal dyskinesis. Distal posterior , distal inferoseptal, anterior and apical akinesis.Best motion is noted in the proximal posterior and lateral brown Left ventricular ejection fraction estimated to be 20-25 %. Increased E point-interventricular septal separation c/w left ventricular dysfunction. No evidence of pericardial effusion. Left and right atrial chambers are within normal limits. Mild right ventricular dilatation. Focal aortic valve sclerosis with adequate cusp excursion. Thickened mitral valve leaflets with normal excursion. Mitral annulus and aortic root calcification. Pulmonic valve not well visualized. Normal tricuspid valve structure. IVC at normal size without physiologic collapse. A color flow and spectral Doppler study was performed and revealed: No evidence of aortic regurgitation. Moderate mitral regurgitation. Mitral inflow velocities indicates possible pseudo normalization pattern implying moderately elevated left atrial pressure (Grade II ). Moderate tricuspid regurgitation. Tricuspid systolic velocities suggests peak right ventricular systolic pressure of 58 mmHg, consistent with moderate to severe pulmonary hypertension. Subjective ROS Limited/Unobtainable: No Allergies: Coded Allergies: No Known Allergies (Unverified , 08/07/19) Objective Last 24 Hour Vital Signs Date Time Temp Pulse Resp B/P (MAP) Pulse Ox O2 Delivery O2 Flow Rate FiO2 08/11/19 20:00 98.0 64 18 99/57 (71) 99 08/11/19 19:51 97 Nasal Cannula 2.0 28 08/11/19 19:51 76 18 98 Nasal Cannula 2.0 28 74 20 97 08/11/19 16:00 97.6 82 19 121/79 (93) 97 08/11/19 12:00 98.4 75 118/77 (91) 08/11/19 11:41 73 20 98 Nasal Cannula 2.0 28 75 20 96 08/11/19 10:18 94 133/73 (93) 08/11/19 09:59 72 126/79 08/11/19 09:58 72 08/11/19 09:06 72 20 99 Nasal Cannula 2.0 28 74 20 94 08/11/19 09:05 95 Nasal Cannula 2.0 28 08/11/19 09:00 Nasal Cannula 2.0 08/11/19 08:00 97.8 82 18 126/79 (95) 97 08/11/19 04:00 97.0 76 20 126/80 (95) 96 08/11/19 00:00 98.4 85 20 113/64 (80) 98 08/10/19 23:37 81 16 100 Nasal Cannula 2.0 28 78 16 99 Intake and Output 08/10/19 08/11/19 18:59 06:59 Intake Total 740 ml Output Total 450 ml Balance 740 ml -450 ml Intake Oral 740 ml Output Urine Total 450 ml # Bowel Movements 1 1 Laboratory Tests 08/11/19 05:45: White Blood Count 7.8, Red Blood Count 4.94, Hemoglobin 14.0L, Hematocrit 45.0, Mean Corpuscular Volume 91, Mean Corpuscular Hemoglobin 28.3, Mean Corpuscular Hemoglobin Concent 31.1L, Red Cell Distribution Width 16.6H, Platelet Count 215 , Mean Platelet Volume 5.8L, Neutrophils (%) (Auto) 79.3H, Lymphocytes (%) (Auto ) 15.2L, Monocytes (%) (Auto) 4.7, Eosinophils (%) (Auto) 0.2, Basophils (%) ( Auto) 0.6, Sodium Level 139, Potassium Level 6.2*H, Chloride Level 103, Carbon Dioxide Level 34H, Anion Gap 2L, Blood Urea Nitrogen 21H, Creatinine 1.1, Estimat Glomerular Filtration Rate , Glucose Level 104, Calcium Level 8.8 08/11/19 09:30: Potassium Level 5.1 Current Medications Medications (Trade) Dose Ordered Sig/Brandy Route PRN Reason Start Time Stop Time Status Last Admin Dose Admin Albuterol/ Ipratropium (Albuterol/ Ipratropium) 3 ml Q4HRT HHN 08/10/19 19:00 08/12/19 18:59 08/11/19 19:49 Aspirin (Ecotrin) 81 mg DAILY ORAL 08/11/19 09:00 09/07/19 08:59 08/11/19 09:58 Atorvastatin Calcium (Lipitor) 40 mg BEDTIME ORAL 08/10/19 21:00 09/06/19 20:59 08/11/19 20:36 Carbidopa/Levodopa (Sinemet 25/100) 1 tab THREE TIMES A DAY ORAL 08/11/19 09:00 09/07/19 08:59 08/11/19 18:02 Digoxin (Lanoxin) 0.125 mg DAILY ORAL 08/11/19 09:00 09/07/19 08:59 08/11/19 09:58 Divalproex Sodium (Depakote ER) 750 mg BEDTIME ORAL 08/10/19 21:00 09/07/19 20:59 08/11/19 20:36 Doxycycline Monohydrate (Doxycycline Monohydrate) 100 mg EVERY 12 HOURS ORAL 08/10/19 21:00 08/14/19 20:59 08/11/19 20:36 Guaifenesin (Mucinex ER) 600 mg TWICE A DAY ORAL 08/11/19 09:00 09/07/19 08:59 08/11/19 18:02 Levothyroxine Sodium (Synthroid) 25 mcg ACBREAKFAST ORAL 08/11/19 06:30 09/07/19 06:29 08/11/19 05:34 Lorazepam (Ativan) 1 mg Q6H PRN ORAL For Anxiety 08/10/19 18:27 08/17/19 18:26 Metoprolol Succinate (Toprol XL) 25 mg DAILY ORAL 08/11/19 09:00 09/07/19 08:59 08/11/19 09:59 Multivitamins (Multivitamins) 1 tab DAILY ORAL 08/11/19 09:00 09/07/19 08:59 08/11/19 09:58 Prednisone (predniSONE) 30 mg Q24H ORAL 08/10/19 21:00 09/08/19 20:59 08/11/19 20:36 Risperidone (RisperDAL) 2 mg BEDTIME ORAL 08/10/19 21:00 09/07/19 20:59 08/11/19 20:36 Collins Rust MD Aug 11, 2019 21:09
--- NOTE | 2019-08-11 22:11 | Cardiology Progress Note ---
Assessment/Plan Assessment/Plan 1. Acute on chronic systolic and diastolic CHF, on GDMT, replace metoprolol with CARVEDILOL. Start Aldactone. 2. History of paroxysmal atrial fibrillation, currently in sinus rhythm. 3. Left bundle-branch block. 4. History of hypertension. 5. History of coronary artery disease, questionable. No details. 12-lead electrocardiogram with left bundle branch block does not allow us to assess ST- segment changes.AMI is ruled out. 6. History of hyperlipidemia, continue atorvastatin. Subjective Subjective No chest pain or SOB. No cardiac events are reported. Objective Last 24 Hour Vital Signs Date Time Temp Pulse Resp B/P (MAP) Pulse Ox O2 Delivery O2 Flow Rate FiO2 08/11/19 21:46 Nasal Cannula 2.0 08/11/19 20:00 98.0 64 18 99/57 (71) 99 08/11/19 19:51 97 Nasal Cannula 2.0 28 08/11/19 19:51 76 18 98 Nasal Cannula 2.0 28 74 20 97 08/11/19 16:00 97.6 82 19 121/79 (93) 97 08/11/19 12:00 98.4 75 118/77 (91) 08/11/19 11:41 73 20 98 Nasal Cannula 2.0 28 75 20 96 08/11/19 10:18 94 133/73 (93) 08/11/19 09:59 72 126/79 08/11/19 09:58 72 08/11/19 09:06 72 20 99 Nasal Cannula 2.0 28 74 20 94 08/11/19 09:05 95 Nasal Cannula 2.0 28 08/11/19 09:00 Nasal Cannula 2.0 08/11/19 08:00 97.8 82 18 126/79 (95) 97 08/11/19 04:00 97.0 76 20 126/80 (95) 96 08/11/19 00:00 98.4 85 20 113/64 (80) 98 08/10/19 23:37 81 16 100 Nasal Cannula 2.0 28 78 16 99 Intake and Output 08/10/19 08/11/19 19:00 07:00 Intake Total 740 ml Output Total 450 ml Balance 740 ml -450 ml Intake Oral 740 ml Output Urine Total 450 ml # Bowel Movements 1 1 2D Echo: LVEF 25%, + WMA, RVSP 58 mmHg, Mild RV dilation, Mod MR, Pseudo- normal phy Laboratory Tests Test 08/11/19 05:45 08/11/19 09:30 White Blood Count 7.8 K/UL (4.8-10.8) Red Blood Count 4.94 M/UL (4.70-6.10) Hemoglobin 14.0 G/DL (14.2-18.0) L Hematocrit 45.0 % (42.0-52.0) Mean Corpuscular Volume 91 FL (80-99) Mean Corpuscular Hemoglobin 28.3 PG (27.0-31.0) Mean Corpuscular Hemoglobin Concent 31.1 G/DL (32.0-36.0) L Red Cell Distribution Width 16.6 % (11.6-14.8) H Platelet Count 215 K/UL (150-450) Mean Platelet Volume 5.8 FL (6.5-10.1) L Neutrophils (%) (Auto) 79.3 % (45.0-75.0) H Lymphocytes (%) (Auto) 15.2 % (20.0-45.0) L Monocytes (%) (Auto) 4.7 % (1.0-10.0) Eosinophils (%) (Auto) 0.2 % (0.0-3.0) Basophils (%) (Auto) 0.6 % (0.0-2.0) Sodium Level 139 MMOL/L (136-145) Potassium Level 6.2 MMOL/L (3.5-5.1) *H 5.1 MMOL/L (3.5-5.1) Chloride Level 103 MMOL/L (98-107) Carbon Dioxide Level 34 MMOL/L (21-32) H Anion Gap 2 mmol/L (5-15) L Blood Urea Nitrogen 21 mg/dL (7-18) H Creatinine 1.1 MG/DL (0.55-1.30) Estimat Glomerular Filtration Rate mL/min (>60) Glucose Level 104 MG/DL (74-106) Calcium Level 8.8 MG/DL (8.5-10.1) Objective HEENT: Atraumatic and normocephalic. Anicteric. Pupils are equal, round, and reactive to light and accommodation. Extraocular muscles intact. NECK: JVP is less than 5 cm. No carotid bruit. Carotid upstrokes 2+ bilaterally. CARDIOVASCULAR: Normal S1, S2. Regular rate and rhythm. A 2/6 mid systolic murmur at the left sternal border. PMI is at the fourth intercostal space in the midclavicular line. LUNGS: Diminished breath sounds in both lungs with coarse respiratory sounds and scattered wheezing. ABDOMEN: Soft, nontender, and nondistended. No hepatosplenomegaly. Positive bowel sounds. EXTREMITIES: No evidence of edema, clubbing, or cyanosis. Arben Ye MD Aug 11, 2019 22:11
[2019-08-12] VITALS: BP 120/64
[2019-08-12] MEDS: Albuterol/Ipratropium 3ml neb HHN SCH ×4 (03:00→14:14)
[2019-08-12 04:00] VITALS: BP 117/71
--- NOTE | 2019-08-12 05:15 | Progress Note ---
DATE: 08/11/2019 SUBJECTIVE: The patient in bed. No acute distress noted. Has episodes of agitation. Disoriented to the situation he is in. The patient is overall improving. MENTAL STATUS EXAMINATION: The patient is alert, oriented times self and place. Mood is anxious. Affect is constricted, congruent with mood. Thought process is concrete. Thought content, no suicidal or homicidal ideation. PLAN: 1. We will continue to follow and readjust the medications. 2. Provide the patient with reality orientation and supportive therapy. Tico Lebron M.D. DR: MIKE JOB#: [id number] CC:
[2019-08-12] MEDS: Levothyroxine 25mcg tab ORAL SCH (05:40)
[2019-08-12 06:32] LABS: BASOPHILS % (AUTO) 0.7 % (0.0-2.0); EOSINOPHILS % (AUTO) 0.3 % (0.0-3.0); HEMATOCRIT 44.6 % (42.0-52.0); HEMOGLOBIN 14.4 G/DL (14.2-18.0); MEAN CORPUSCULAR VOLUME 89 FL (80-99); MONOCYTES % (AUTO) 3.4 % (1.0-10.0); NEUTROPHILS % (AUTO) 82.6 % (45.0-75.0); PLATELET COUNT 211 K/UL (150-450); RED BLOOD COUNT 4.99 M/UL (4.70-6.10); RED CELL DISTRIBUTION WIDTH 16.8 % (11.6-14.8); WHITE BLOOD COUNT 5.6 K/UL (4.8-10.8)
[2019-08-12 08:00] VITALS: BP 116/64
[2019-08-12] MEDS ORDERED: Spironolactone 25mg tab ORAL SCH (09:00)
[2019-08-12] MEDS: Digoxin 0.125mg tab ORAL SCH (09:54)
[2019-08-12] MEDS: guaiFENesin ER 600mg tab ORAL SCH (09:54)
[2019-08-12] MEDS: Doxycycline Monohydrate 100mg ORAL SCH (09:55)
[2019-08-12] MEDS: Aspirin EC 81mg tab ORAL SCH (09:55)
[2019-08-12] MEDS: Levodopa/Carbidopa 25/100 tab ORAL SCH ×2 (09:55→14:13)
[2019-08-12 12:00] VITALS: BP 111/66
--- NOTE | 2019-08-12 18:30 | Progress Note ---
DATE: 08/12/2019 SUBJECTIVE: The patient is in bed. No acute distress. Confused, disoriented. He has some agitation, manageable with current medications. MENTAL STATUS EXAMINATION: Alert, oriented times self and place. Mood is anxious. Affect is constricted, congruent with mood. Thought process is concrete. Thought content, no suicidal or homicidal ideation. Cognition is impaired. Insight and judgment is impaired. ASSESSMENT: 1. Schizophrenia. 2. Dementia. PLAN: 1. We will continue current psychotropic medications. 2. Provide the patient with reality orientation and supportive therapy. Tico Lebron M.D. DR: LYNN JOB#: [id number] CC:
--- NOTE | 2019-08-14 10:52 | Discharge Summary ---
Discharge Summary Discharge Summary _ DATE OF ADMISSION: 08/07/2019 DATE OF DISCHARGE: 08/12/2019 DISCHARGED BY: Dr. Duane Garcia CONSULTANTS: Dr. Tico Rust BRIEF HOSPITAL COURSE: Patient is a 74-year-old male who presented to ED for evaluation of wheezing and nonproductive cough. He was hypotensive at the shelter. He was also wheezing and had shortness of breath with cough for past couple of days. He denies orthopnea. Denies nausea, vomiting or diarrhea. He is status post a fracture of right upper arm. He has history of COPD, hypertension, CAD, hyperlipidemia, atrial fibrillation, Parkinson's and schizophrenia. On evaluation at the ED, blood pressure was 97/57, heart rate 77. Patient had dyspnea and wheezing. He improved with breathing treatment. Blood work did not show any leukocytosis. Hemoglobin 12, hematocrit 38. proBNP was 9918. Troponin 0 0.040. He was given Lasix. Chest x-ray did not show any lobular infiltrates. EKG showed sinus rhythm with a rate of 83 with left bundle branch block. He was then admitted for acute COPD exacerbation. He was followed by polymerization engineer. He was continued on Solu-Medrol. He was started empirically on doxycycline. He was placed on aspiration precautions. Venous duplex of the lower extremity was negative. He was continued on DVT prophylaxis with heparin. Psychiatric evaluation was done. Patient was combative, confused, disoriented, and has poor cognition. He was diagnosed with schizophrenia. He was given risperidone and Depakote. Track Watchman was consulted. Dyspnea on exertion was most likely from acute exacerbation of COPD. Blood pressure medications were placed on hold due to stated episodes of hypotension at the shelter. Cholesterol panel was checked. He was given a atorvastatin. Echocardiogram showed global left ventricular hypokinesis. Anteroseptal dyskinesis. Ejection fraction 20 to 25% . Right ventricular systolic pressure of 58 mmHg consistent with moderate to severe pulmonary hypertension. Patient was restarted on metoprolol was switched to carvedilol. Lasix was resumed. He was started on Aldactone. He was weaned off Solu-Medrol. He was given prednisone. He was cleared for discharge to continue p.o. steroids. He was discharged back to [facility]. FINAL DIAGNOSES: Acute COPD exacerbation Acute on chronic systolic and diastolic CHF Hypertension Coronary artery disease Hyperlipidemia Schizophrenia Hypothyroidism Anxiety DISPOSITION: Patient was discharged to a SNF. DISCHARGE MEDICATIONS: Refer to Discharge Medication List. What connected to the computer I have been assigned to complete a discharge summary on this account, I was not involved with the patient's management.--ELISSA Rojas Jacqueline Robles NP Aug 14, 2019 10:52
== END 2019-08-12 15:11 | DRG 190 ==
LOC: EDBD 13:04 → EMR 14:37 → EDBEDREQ 16:48 → 2E 16:53 → 4E 08-10 18:12
DX: J44.1 Chronic obstructive pulmonary disease with (acute) exacerbation (principal); I50.43 Acute on chronic combined systolic (congestive) and diastolic (congestive) heart failure; F02.81 Dementia in other diseases classified elsewhere, unspecified severity, with behavioral disturbance; I11.0 Hypertensive heart disease with heart failure; F20.9 Schizophrenia, unspecified; I44.7 Left bundle-branch block, unspecified; E78.5 Hyperlipidemia, unspecified; G20 Parkinson's disease; E03.9 Hypothyroidism, unspecified; E87.6 Hypokalemia; I25.10 Atherosclerotic heart disease of native coronary artery without angina pectoris; F41.9 Anxiety disorder, unspecified; I34.0 Nonrheumatic mitral (valve) insufficiency; I27.20 Pulmonary hypertension, unspecified; I36.1 Nonrheumatic tricuspid (valve) insufficiency
CPT/HCPCS: 36415; 71045; 74230; 80048; 80053; 80061; 80162; 82550; 83605; 83880; 84132; 84484; 85007; 85025; 85610; 85730; 86710; 87040; 87070; 87081; 87205; 93005; 93306; 93970; 94640; 94664; 96361; 96365; 96375; 99285; J7030; J7620